=== PATIENT | female | born 1960 | race Caucasian/White ===

== ENCOUNTER 2022-01-23 23:27 | Inpatient (IN) ==
[2022-01-23] MEDS ORDERED: NS 1,000 ML IV 1,000 ML ONE (23:59)
[2022-01-23] MEDS ORDERED: ZOFRAN INJ 4 MG VIAL ONE (23:59)
[2022-01-24] MEDS ORDERED: ZOFRAN INJ 4 MG VIAL IVP ONE (00:08)
[2022-01-24] MEDS ORDERED: NS 100 ML IV 100 ML IV ONE (00:08)
[2022-01-24 00:09] LABS: BILIRUBIN,URINE 1+ (NEGATIVE); BLOOD/HEMOGLOBIN,URINE 1+ (NEGATIVE); GLUCOSE, URINE NEGATIVE (NEGATIVE); KETONES,URINE NEGATIVE (NEGATIVE); LEUKOCYTE ESTERASE ,URINE 1+ (NEGATIVE); NITRITES,URINE NEGATIVE (NEGATIVE); PROTEIN,URINE 1+ (NEGATIVE); UROBILINOGEN,URINE 1+ (NORMAL)
[2022-01-24] MEDS ORDERED: MORPHINE SULFATE INJ 2 MG INJ IVP ONE (00:18)
[2022-01-24 00:19] LABS: APPEARANCE,URINE CLEAR (CLEAR); COLOR,URINE YELLOW (YELLOW); RBC,URINE 0-2 /HPF (0-3)
[2022-01-24 00:20] LABS: BACTERIA,URINE TRACE /HPF (NEGATIVE); CALCIUM OXALATE CRYSTALS,UR NUMEROUS /HPF (NEGATIVE); SQUAMOUS EPITHELIAL CELL,UR MODERATE /HPF (NEGATIVE)
[2022-01-24] MEDS ORDERED: MORPHINE SULFATE INJ 2 MG INJ ONE (00:21)
[2022-01-24] MEDS ORDERED: NS 1,000 ML IV 1,000 ML IV ONE (00:21)
--- NOTE | 2022-01-24 00:26 | ED.ABDFE ---
HPI Time Seen Time Seen by Provider: 01/24/22 00:08 PCP Primary Care Physician: kerri finch HPI Comment HPI Comment: A 61 y/o female presenting with c/o nausea, voming and lower abdominal pain since about 6 hrs. ago. She denies recent travel or having consumed poorly prepared food items. Complaint Chief Complaint:: pt stated every since about 193 she has been having stomach pain that radiates more to the left side. she has also been vomiting. Self Treatment fo Chief Complaint: 1999- motrin COVID-19 Coronavirus risk:travel/contact w/high risk person: No Has patient experienced Coronavirus symptoms: No Source History Provided: Patient Mode of arrival Mode of Arrival: Ambulatory Timing Onset of Chief Complaint: 01/23/22 Duration Since Onset: Intermittent How lon Duration: Hours Location Location: Suprapubic Severity Severity: Moderate and Severe Modifying factors Worsening Factors: Nothing Improving Factors: Nothing Associated signs and symptoms Associated Signs and Symptoms: Nausea and Vomiting PMH PMH Past Medical History: No Past Surgical History: Yes Surgical History: Hysterectomy Family History History of Family Medical Conditions: No Social History Alcohol Use: None Do you use any recreational Drugs:: No Lives With: Spouse Lives Where: Home Travel Risk Coronavirus risk:travel/contact w/high risk person: No Has patient experienced Coronavirus symptoms: No Infectious screening In the last 2 months have you had wt loss of >10#?: NO Have you had fever, night sweats or hemotysis?: No Have you traveled outside the country in the last 6 months?: No Isolation: Standard ROS Review of Systems Constitutional: No Symptoms Reported Eyes: No Symptoms Reported ENTM: No Symptoms Reported Respiratoy: No Symptoms Reported Cardiovascular: No Symptoms Reported Gastrointestinal/Abdominal: See HPI, Abdominal Pain, Nausea and Vomiting Genitourinary: No Symptoms Reported Neurological: No Symptoms Reported Musculoskeletal: No Symptoms Reported Integumentary: No Symptoms Reported Hematologic/Lymphatic: No Symptoms Reported Endocrine: No Symptoms Reported Psychiatric: No Symptoms Reported PE Vital Signs Vitals: Temperature 98.2 F Pulse Rate 71 Respiratory Rate 20 Blood Pressure 153/70 O2 Sat by Pulse Oximetry 97 General Limitations: No Limitations General Appearance: Alert and In No Apparent Distress Head Head Exam: Normal Inspection, Atraumatic and Normocephalic Eyes Eye exam: Normal Appearance and EOMI ENT ENT Exam: Normal Exam, Normal Oropharynx, Normal External Ear Exam and Mucous Membranes Moist Neck Neck Exam: Normal Inspection, Full ROM and Trachea Midline Chest Chest Inspection: Normal Inspection and Symmetric Chest Wall Rise Respiratory Respiratory Exam: Normal Lung Sounds Bilat Cardiovascular Cardiovascular Exam: Regular Rate, Normal Rhythm, Normal Heart Sounds, +S1 and +S2 Abdominal Exam Abdominal Exam: Normal Inspection, Normal Bowel Sounds and Soft Rectal Rectal Exam: Deferred Back Back Exam: Normal Inspection and Full ROM Extremeties Extremities Exam: Normal Inspection and Full ROM External Exam: Female: Deferred Neurologic Neurological Exam: Alert and Oriented X3 Psychiatric Psychiatric Exam: Normal Affect and Normal Mood Skin Skin Exam: Intact COURSE Treatment Treatment: She had IVF, labs and abdiminal CT Scan. She received antiemetics and analgesics. I did discuss her diagnostic studies with her. Pt's. diagnostics were reviewed with on-call surgeon (Dr. ESPOSITO), who agrees to admit the pt. with repeat studies in the morning. Reevaluation 1st: Improved Education/Counseling Education/Counseling: Patient, Family, Education and Counseling Educated On: Treatment, Diagnosis, Prognosis and Needs for Follow Up ROR Labs Reviewed Result Diagrams: 01/24/22 00:08 01/24/22 00:08 Laboratory: WBC 12.6 X10^3/uL (3.6-10.0) H 01/24/22 00:08 RBC 5.19 X10^6/uL (3.5-5.4) 01/24/22 00:08 Hgb 15.4 g/dL (12.0-16.0) 01/24/22 00:08 Hct 45.3 % (36.0-47.0) 01/24/22 00:08 MCV 87.4 fL (80.0-100.0) 01/24/22 00:08 MCH 29.7 pg (27.0-34.0) 01/24/22 00:08 MCHC 34.0 g/dL (33.0-35.0) 01/24/22 00:08 RDW 14.1 % (11.6-16.5) 01/24/22 00:08 Plt Count 215 X10^3/uL (150.0-450.0) 01/24/22 00:08 MPV 9.5 fL (7.4-11.0) 01/24/22 00:08 Neut % (Auto) 74.9 % (42.0-75.0) 01/24/22 00:08 Lymph % (Auto) 16.3 % (21.0-51.0) L 01/24/22 00:08 [place] % (Auto) 7.2 % (0.0-13.0) 01/24/22 00:08 Eos % (Auto) 0.8 % (0.9-2.9) L 01/24/22 00:08 Baso % (Auto) 0.8 % (0.2-1.0) 01/24/22 00:08 Neut # (Auto) 9.4 x10^3/uL (2.2-4.8) H 01/24/22 00:08 Lymph # (Auto) 2.0 X10^3/uL (1.3-2.9) 01/24/22 00:08 [place] # (Auto) 0.9 x10^3/uL (0.3-0.8) H 01/24/22 00:08 Eos # (Auto) 0.1 x10^3/uL (0.0-0.2) 01/24/22 00:08 Baso # (Auto) 0.1 X10^3/uL (0.0-0.1) 01/24/22 00:08 Absolute Nucleated RBC 0.0 /100WBC 01/24/22 00:08 Sodium 138 mmol/L (136-145) 01/24/22 00:08 Corrected Sodium 139 mmol/L (136-145) 01/24/22 00:08 Potassium 4.0 mmol/L (3.5-5.1) 01/24/22 00:08 Chloride 100 mmol/L (98-107) 01/24/22 00:08 Carbon Dioxide 27.9 mmol/L (21-32) 01/24/22 00:08 BUN 17 mg/dL (7-18) 01/24/22 00:08 Creatinine 0.83 mg/dL (0.55-1.02) 01/24/22 00:08 Est GFR (MDRD) Af Amer > 60 (>60) 01/24/22 00:08 Est GFR (MDRD) Non-Af > 60 (>60) 01/24/22 00:08 Glucose 129 mg/dL (65-99) H 01/24/22 00:08 Calcium 9.6 mg/dL (8.5-10.1) 01/24/22 00:08 Corrected Calcium TNP 01/24/22 00:08 Total Bilirubin 0.30 mg/dL (0.2-1.0) 01/24/22 00:08 AST 15 Units/L (15-37) 01/24/22 00:08 ALT 23 Units/L (12-78) 01/24/22 00:08 Alkaline Phosphatase 102 Units/L (46-116) 01/24/22 00:08 Total Protein 8.1 g/dL (6.4-8.2) 01/24/22 00:08 Albumin 4.2 g/dL (3.4-5.0) 01/24/22 00:08 Globulin 3.9 g/dL (2.5-4.5) 01/24/22 00:08 Albumin/Globulin Ratio 1.1 Ratio (1.1-2.1) 01/24/22 00:08 Specimen Type Clean catch urine 01/23/22 23:51 Urine Color Yellow (YELLOW) 01/23/22 23:51 Urine Appearance Clear (CLEAR) 01/23/22 23:51 Urine pH 5.0 (5.0 - 8.0) 01/23/22 23:51 Ur Specific [place] 1.030 (1.000-1.030) 01/23/22 23:51 Urine Protein 1+ (NEGATIVE) 01/23/22 23:51 Urine Glucose (UA) Negative (NEGATIVE) 01/23/22 23:51 Urine Ketones Negative (NEGATIVE) 01/23/22 23:51 Urine Blood 1+ (NEGATIVE) 01/23/22 23:51 Urine Nitrite Negative (NEGATIVE) 01/23/22 23:51 Urine Bilirubin 1+ (NEGATIVE) 01/23/22 23:51 Urine Urobilinogen 1+ (NORMAL) 01/23/22 23:51 Ur Leukocyte Esterase 1+ (NEGATIVE) 01/23/22 23:51 Urine RBC 0-2 /HPF (0-3) 01/23/22 23:51 Urine WBC 0-2 /HPF (0-5) 01/23/22 23:51 Ur Squamous Epith Cells Moderate /HPF (NEGATIVE) 01/23/22 23:51 Calcium Oxalate Crystal Numerous /HPF (NEGATIVE) 01/23/22 23:51 Urine Bacteria Trace /HPF (NEGATIVE) 01/23/22 23:51 Ur Culture Indicated? No/not indicated 01/23/22 23:51 Opioid Opioid Risk Tool Age (Darryl box if 16-45): No History of Preadolescent Sexual Abuse: No Total: 0 Total Score Risk Category: Low Risk Copyright: Bueno predicting aberrant behaviors Discharge Plan Diagnosis Discharge Problem: Volvulus Discharge Plan Patient Disposition: ADMITTED INPATIENT Condition: Stable Prescriptions: No Action atorvastatin 10 mg tablet 1 tab PO QPM omeprazole 40 mg capsule,delayed release(DR/EC) 1 cap PO QDAY temazepam 15 mg capsule 1 cap PO QPM PRN estradiol 2 mg tablet 1 tab PO QDAY folic acid 1 mg tablet 1 tab PO QDAY albuterol sulfate 90 mcg/actuation HFA aerosol inhaler 2 puff INHALATION Q4H PRN budesonide-formoterol [Symbicort] 160-4.5 mcg/actuation HFA aerosol inhaler 2 puff INHALATION BID thyroid (pork) [[place] Thyroid] 90 mg tablet 1 tab PO QAM Health Concerns: Post Hospitalization: new medications and changes needed to prevent readmission or further decline. Pt educated and given instructions on all concerns. Plan of Treatment: Continue with present treatment and follow up plan. Pt is to keep follow up appointment as instructed and take medications as ordered. Orders to Discharge Patient Discharge Orders: Transfer (Routine); Ordered 01/24/22 Ordered By: PARMINDER TOMPKINS Follow ups/Referrals Follow ups/Referrals: RODRICK FINCH [Primary Care Provider] - 3 days ADDITIONAL NOTES Additional Notes Additional Notes: Name: Omar SILVERIO#: [id number]: [id number]: 1960ex: FLocation: EROrder Number(s): [id number](s):ABDOMEN/PELVIS W/O CON Ordering Physician: PARMINDER TOMPKINS Primary Care: Rodrick Finch Service Date: 01/24/22 Service Time: 23 PROCEDURE: CT Abdomen and Pelvis without Contrast . HISTORY: Abdomen pain radiating to the left with nausea and vomiting. TECHNIQUE: Axial images were performed through the abdomen and pelvis without the administration of IV contrast with multiplanar reformations . Oral contrast was not administered . Dose reduction techniques including Automated Exposure Control (AEC) and adjustment of mA and kV were utilized . COMPARISON: None . TECHNICAL QUALITY: Satisfactory . FINDINGS: The linear scar versus discoid atelectasis right base. Mildly elevated left hemidiaphragm. Subcentimeter right hepatic cyst laterally. Spleen, adrenals, and pancreas show no significant abnormality. Kidneys show no stones or obstruction. Normal biliary tract. No ascites or pneumoperitoneum. Mild atherosclerosis aorta. No lymphadenopathy. Prominent mucosa involving duodenum in jejunal bowel loops consistent with enteritis with mild perienteric stranding. Associated mild ileus involving the loops. There is a nonobstructing mid gut volvulus with jejunal bowel loops in the mid and right abdomen. No definite bowel obstruction. Normal appendix. Pelvis shows no masses or free fluid with previous hysterectomy. Normal urinary bladder. No acute bony abnormality. IMPRESSION: 1. Enteritis involving duodenum and jejunum with suspected localized ileus. 2. Nonobstructing mid gut volvulus. Follow-up plain films may be helpful to rule out early obstruction with dilated loops suspected to be related to ileus. 3. No other significant abnormality identified. Electronically signed by: Leroy Singh (Jan 24, 2022 01:01:13) Report Electronically signed: 01/24/22 0103 CC: Parminder Tompkins
[2022-01-24 00:29] LABS: HEMOGLOBIN 15.4 g/dL (12.0-16.0); RED CELL DISTRIBUTION WIDTH 14.1 % (11.6-16.5)
[2022-01-24 00:32] LABS: BASOPHILS # (AUTO) 0.1 X10^3/uL (0.0-0.1); BASOPHILS % (AUTO) 0.8 % (0.2-1.0); EOSINOPHILS # (AUTO) 0.1 x10^3/uL (0.0-0.2); EOSINOPHILS % (AUTO) 0.8 % (0.9-2.9); HEMATOCRIT 45.3 % (36.0-47.0); LYMPHOCYTES % (AUTO) 16.3 % (21.0-51.0); MEAN CORPUSCULAR HEMOGLOBIN 29.7 pg (27.0-34.0); MEAN CORPUSCULAR VOLUME 87.4 fL (80.0-100.0); MEAN PLATELET VOLUME 9.5 fL (7.4-11.0); MONOCYTES # (AUTO) 0.9 x10^3/uL (0.3-0.8); MONOCYTES % (AUTO) 7.2 % (0.0-13.0); NEUTROPHILS # (AUTO) 9.4 x10^3/uL (2.2-4.8); NEUTROPHILS % (AUTO) 74.9 % (42.0-75.0); RED BLOOD COUNT 5.19 X10^6/uL (3.5-5.4); WHITE BLOOD COUNT 12.6 X10^3/uL (3.6-10.0)
[2022-01-24 00:39] LABS: ALANINE AMINOTRANSFERASE 23 Units/L (12-78); ALBUMIN 4.2 g/dL (3.4-5.0); ALKALINE PHOSPHATASE 102 Units/L (46-116); ASPARTATE AMINO TRANSFERASE 15 Units/L (15-37); BLOOD UREA NITROGEN 17 mg/dL (7-18); CALCIUM 9.6 mg/dL (8.5-10.1); CARBON DIOXIDE 27.9 mmol/L (21-32); CHLORIDE 100 mmol/L (98-107); COR NA(FOR HYPERGLY) 139 mmol/L (136-145); CREATININE 0.83 mg/dL (0.55-1.02); SODIUM 138 mmol/L (136-145); TOTAL PROTEIN 8.1 g/dL (6.4-8.2); eGFR NON BLACK RACES > 60 (>60)
--- NOTE | 2022-01-24 01:03 | CT ---
PROCEDURE: CT Abdomen and Pelvis without Contrast .HISTORY: Abdomen pain radiating to the left with nausea and vomiting.TECHNIQUE: Axial images were performed through the abdomen and pelvis without the administration of IV contrast with multiplanar reformations . Oral contrast was not administered . Dose reduction techniques including Automated Exposure Control (AEC) and adjustment of mA and kV were utilized .COMPARISON: None .TECHNICAL QUALITY: Satisfactory .FINDINGS:The linear scar versus discoid atelectasis right base. Mildly elevated left hemidiaphragm.Subcentimeter right hepatic cyst laterally. Spleen, adrenals, and pancreas show no significant abnormality.Kidneys show no stones or obstruction.Normal biliary tract.No ascites or pneumoperitoneum.Mild atherosclerosis aorta.No lymphadenopathy.Prominent mucosa involving duodenum in jejunal bowel loops consistent with enteritis with mild perienteric stranding. Associated mild ileus involving the loops. There is a nonobstructing mid gut volvulus with jejunal bowel loops in the mid and right abdomen. No definite bowel obstruction. Normal appendix.Pelvis shows no masses or free fluid with previous hysterectomy. Normal urinary bladder.No acute bony abnormality.IMPRESSION:1. Enteritis involving duodenum and jejunum with suspected localized ileus.2. Nonobstructing mid gut volvulus. Follow-up plain films may be helpful to rule out early obstruction with dilated loops suspected to be related to ileus.3. No other significant abnormality identified.Electronically signed by: Leroy Singh (Jan 24, 2022 01:01:13)
[2022-01-24] MEDS ORDERED: NS 1,000 ML IV 1,000 ML ONE (01:27)
[2022-01-24] MEDS ORDERED: MORPHINE SULFATE INJ 2 MG INJ IVP PRN (01:39)
[2022-01-24] MEDS ORDERED: NS 1,000 ML IV 1,000 ML IV SCH (02:00)
[2022-01-24] MEDS ORDERED: COMPAZINE INJ ONE (02:53)
[2022-01-24] MEDS ORDERED: RESTORIL CAP 15 MG PO PRN (02:56)
[2022-01-24] MEDS: NS 1,000 ML IV 1,000 ML IV SCH ×4 (03:31→18:05)
--- NOTE | 2022-01-24 05:47 | RAD ---
PROCEDURE: Acute Abdomen Series .HISTORY: Abdomen pain and volvulus.TECHNIQUE: AP supine and upright abdomen with AP chest x-ray views .COMPARISON: Correlated with CT abdomen pelvis 01/23/2022.TECHNICAL QUALITY: Satisfactory .FINDINGS:Chest x-ray shows clear lungs and normal size heart.No pneumoperitoneum.Small bowel gas mid left abdomen be related ileus or early obstruction. Gas and feces in the colon without distention.No organomegaly.No abnormal calcifications.No bony abnormality.IMPRESSION:1. Mild ileus versus early obstruction.2. No active cardiopulmonary disease.Electronically signed by: Leroy Singh (Jan 24, 2022 05:46:02)
[2022-01-24 06:19] LABS: BLOOD UREA NITROGEN 14 mg/dL (7-18); CALCIUM 8.6 mg/dL (8.5-10.1); CARBON DIOXIDE 26.5 mmol/L (21-32); CHLORIDE 105 mmol/L (98-107); COR NA(FOR HYPERGLY) 138 mmol/L (136-145); CREATININE 0.54 mg/dL (0.55-1.02); SODIUM 138 mmol/L (136-145); eGFR NON BLACK RACES > 60 (>60)
[2022-01-24 06:21] LABS: BASOPHILS % (AUTO) 0.5 % (0.2-1.0); EOSINOPHILS % (AUTO) 0.2 % (0.9-2.9); HEMATOCRIT 39.5 % (36.0-47.0); HEMOGLOBIN 13.6 g/dL (12.0-16.0); LYMPHOCYTES # (AUTO) 1.1 X10^3/uL (1.3-2.9); LYMPHOCYTES % (AUTO) 12.7 % (21.0-51.0); MEAN CORPUSCULAR HEMOGLOBIN 29.9 pg (27.0-34.0); MEAN CORPUSCULAR HGB CONC 34.3 g/dL (33.0-35.0); MEAN CORPUSCULAR VOLUME 87.1 fL (80.0-100.0); MEAN PLATELET VOLUME 9.6 fL (7.4-11.0); MONOCYTES # (AUTO) 0.5 x10^3/uL (0.3-0.8); MONOCYTES % (AUTO) 5.1 % (0.0-13.0); NEUTROPHILS # (AUTO) 7.2 x10^3/uL (2.2-4.8); NEUTROPHILS % (AUTO) 81.5 % (42.0-75.0); RED BLOOD COUNT 4.53 X10^6/uL (3.5-5.4); RED CELL DISTRIBUTION WIDTH 13.8 % (11.6-16.5); WHITE BLOOD COUNT 8.9 X10^3/uL (3.6-10.0)
[2022-01-24] MEDS ORDERED: DILAUDID INJ IVP PRN (06:46)
[2022-01-24] MEDS ORDERED: DILAUDID INJ ONE (06:48)
[2022-01-24 06:53] LABS: ALANINE AMINOTRANSFERASE 19 Units/L (12-78); ALBUMIN 3.3 g/dL (3.4-5.0); ALKALINE PHOSPHATASE 83 Units/L (46-116); ASPARTATE AMINO TRANSFERASE 13 Units/L (15-37); COR CA(FOR HYPOALB) 9.2 mg/dL (8.5-10.1); TOTAL PROTEIN 6.5 g/dL (6.4-8.2)
[2022-01-24] MEDS: ESTRACE PO SCH (08:32)
[2022-01-24] MEDS ORDERED: PROVENTIL NEB TX 0.083% 2.5MG/ 3ML ONE (08:33)
[2022-01-24] MEDS ORDERED: PULMICORT NEB TX 0.5 MG NEB ONE ×2 (08:33→20:00)
[2022-01-24] MEDS: FOLIC ACID TAB 1 MG PO SCH (08:34)
[2022-01-24] MEDS: PULMICORT NEB TX 0.5 MG NEB SCH ×2 (08:35→21:03)
[2022-01-24] MEDS: PROVENTIL NEB TX 0.083% 2.5MG/ 3ML NEB PRN ×4 (08:35→21:03)
[2022-01-24] MEDS ORDERED: SYMBICORT INH 160/4.5 mcg IN SCH (09:00)
[2022-01-24] MEDS ORDERED: PriLOSEC PO SCH (09:00)
[2022-01-24] MEDS ORDERED: PATIENT'S HOME MEDICATION (Budesonide-Formoterol [Symbicort] 160-4.5 mcg/actuation HFA aer IN SCH (09:00)
--- NOTE | 2022-01-24 09:58 | DR.PROGNOT ---
Hospital Progress Notes - Progress Note for Day of: Progress Note Date: 01/24/22 - Chief Complaint Chief Complaint: Lt side abdominal pain with severe cramps , nausea , dry heaves .. remote h/o hysterectomy . KUB with mild ileus . normal CBC with 815 segs . consentrated urine . - Past Medical Family Social History Past Med/Fam/Surg Hx: No changes since H&P Allergies: Allergies cephalexin [From Keflex] Allergy (Verified 01/23/22 23:43) - Review Of Systems ROS: No change since H&P - Vital Signs Vital Signs: Temperature 98.6 F Pulse Rate [Left Brachial] 68 Pulse Rate 71 Respiratory Rate 24 Blood Pressure [Right Arm] 142/61 Blood Pressure [Left Arm] 124/60 Blood Pressure 153/70 O2 Sat by Pulse Oximetry 94 - Physical Exam Oriented: Normal Eyes: Normal Ear: Normal Nose: Normal Throat: Normal Cardiovascular: Normal : Normal GI:Auscultation: Decreased GI:Palpation: Normal GI: Tenderness: LUQ, LLQ (soft abdomen with moderate Lt side tenderness ) Speech Pattern: Clear - Laboratory and Diagnostics Result Diagrams: 01/24/22 04:57 01/24/22 04:57 Labs: Laboratory WBC 8.9 X10^3/uL (3.6-10.0) 01/24/22 04:57 RBC 4.53 X10^6/uL (3.5-5.4) 01/24/22 04:57 Hgb 13.6 g/dL (12.0-16.0) 01/24/22 04:57 Hct 39.5 % (36.0-47.0) 01/24/22 04:57 MCV 87.1 fL (80.0-100.0) 01/24/22 04:57 MCH 29.9 pg (27.0-34.0) 01/24/22 04:57 MCHC 34.3 g/dL (33.0-35.0) 01/24/22 04:57 RDW 13.8 % (11.6-16.5) 01/24/22 04:57 Plt Count 167 X10^3/uL (150.0-450.0) 01/24/22 04:57 MPV 9.6 fL (7.4-11.0) 01/24/22 04:57 Neut % (Auto) 81.5 % (42.0-75.0) H 01/24/22 04:57 Lymph % (Auto) 12.7 % (21.0-51.0) L 01/24/22 04:57 [place] % (Auto) 5.1 % (0.0-13.0) 01/24/22 04:57 Eos % (Auto) 0.2 % (0.9-2.9) L 01/24/22 04:57 Baso % (Auto) 0.5 % (0.2-1.0) 01/24/22 04:57 Neut # (Auto) 7.2 x10^3/uL (2.2-4.8) H 01/24/22 04:57 Lymph # (Auto) 1.1 X10^3/uL (1.3-2.9) L 01/24/22 04:57 [place] # (Auto) 0.5 x10^3/uL (0.3-0.8) 01/24/22 04:57 Eos # (Auto) 0.0 x10^3/uL (0.0-0.2) 01/24/22 04:57 Baso # (Auto) 0.0 X10^3/uL (0.0-0.1) 01/24/22 04:57 Absolute Nucleated RBC 0.1 /100WBC 01/24/22 04:57 Sodium 138 mmol/L (136-145) 01/24/22 04:57 Corrected Sodium 138 mmol/L (136-145) 01/24/22 04:57 Potassium 3.9 mmol/L (3.5-5.1) 01/24/22 04:57 Chloride 105 mmol/L (98-107) 01/24/22 04:57 Carbon Dioxide 26.5 mmol/L (21-32) 01/24/22 04:57 BUN 14 mg/dL (7-18) 01/24/22 04:57 Creatinine 0.54 mg/dL (0.55-1.02) L 01/24/22 04:57 Est GFR (MDRD) Af Amer > 60 (>60) 01/24/22 04:57 Est GFR (MDRD) Non-Af > 60 (>60) 01/24/22 04:57 Glucose 114 mg/dL (65-99) H 01/24/22 04:57 Calcium 8.6 mg/dL (8.5-10.1) 01/24/22 04:57 Corrected Calcium 9.2 mg/dL (8.5-10.1) 01/24/22 04:57 Total Bilirubin 0.20 mg/dL (0.2-1.0) 01/24/22 04:57 AST 13 Units/L (15-37) L 01/24/22 04:57 ALT 19 Units/L (12-78) 01/24/22 04:57 Alkaline Phosphatase 83 Units/L (46-116) 01/24/22 04:57 Total Protein 6.5 g/dL (6.4-8.2) 01/24/22 04:57 Albumin 3.3 g/dL (3.4-5.0) L 01/24/22 04:57 Globulin 3.2 g/dL (2.5-4.5) 01/24/22 04:57 Albumin/Globulin Ratio 1.0 Ratio (1.1-2.1) L 01/24/22 04:57 Specimen Type Clean catch urine 01/23/22 23:51 Urine Color Yellow (YELLOW) 01/23/22 23:51 Urine Appearance Clear (CLEAR) 01/23/22 23:51 Urine pH 5.0 (5.0 - 8.0) 01/23/22 23:51 Ur Specific [place] 1.030 (1.000-1.030) 01/23/22 23:51 Urine Protein 1+ (NEGATIVE) 01/23/22 23:51 Urine Glucose (UA) Negative (NEGATIVE) 01/23/22 23:51 Urine Ketones Negative (NEGATIVE) 01/23/22 23:51 Urine Blood 1+ (NEGATIVE) 01/23/22 23:51 Urine Nitrite Negative (NEGATIVE) 01/23/22 23:51 Urine Bilirubin 1+ (NEGATIVE) 01/23/22 23:51 Urine Urobilinogen 1+ (NORMAL) 01/23/22 23:51 Ur Leukocyte Esterase 1+ (NEGATIVE) 01/23/22 23:51 Urine RBC 0-2 /HPF (0-3) 01/23/22 23:51 Urine WBC 0-2 /HPF (0-5) 01/23/22 23:51 Ur Squamous Epith Cells Moderate /HPF (NEGATIVE) 01/23/22 23:51 Calcium Oxalate Crystal Numerous /HPF (NEGATIVE) 01/23/22 23:51 Urine Bacteria Trace /HPF (NEGATIVE) 01/23/22 23:51 Ur Culture Indicated? No/not indicated 01/23/22 23:51 SARS-CoV-2 (PCR) Negative (NEGATIVE) 01/24/22 01:53 - Assessment and Plan 2: acute abdominal pain possible partial SBO . abdominal adhesions .. hypothyroidism . anxiety . asthma . GERD .. to observe for now .. keep NPO , INF, IV protonix and pain control .. - Problem Patient Problems: Patient Problems Volvulus (Acute) K56.2
[2022-01-24] MEDS: DILAUDID INJ IVP PRN ×4 (10:40→21:10)
[2022-01-24] MEDS: PROTONIX INJ 40 MG VIAL IVP SCH ×2 (10:40→21:11)
--- NOTE | 2022-01-24 15:30 | DR.CONSULT ---
CONSULT Consultation for Day of: Date: 01/24/22 Chief Complaint Chief Complaint: Consultation for medical management of chronic medical problems Allergies Allergies Allergy/AdvReac Type Severity Reaction Status Date / Time cephalexin [From Keflex] Allergy Verified 01/23/22 23:43 History of Present Illness History of Present Illness: This is a pleasant 61-year-old white female who presented to the emergency department last night with nausea vomiting and abdominal cramping radiating to the left side of her abdomen. CT of the abdomen was done which showed some enteritis in the duodenum and jejunum. Also possible volvulus indicating a possible ileus versus small bowel obstruction but more likely an ileus. This morning the patient is sitting on the side of the bed and seems to be more comfortable though she comes in. She is feeling better today and reports to me that she does have a history of hypothyroidism, COPD, hyperlipidemia, insomnia and acid reflux. Past Medical History Past Medical History: COPD, Dyslipidemia, GERD and Hypothyroidism Past Surgical History Surgical History: Hysterectomy Family History Family Medical History: Cancer, NM and Sudden Cardiac Social History Does patient currently use any type of tobacco product: Yes Have you used tobacco products in the last 12 months: Yes Type of Tobacco Use: Cigarettes Alcohol Use: None Drug Use: None Medications Home Medications: cephalexin [From Keflex] Allergy (Verified 01/23/22 23:43) CONTINUE taking the following medications albuterol sulfate 90 mcg/actuation aerosol inhaler 2 puff inhalation Q4H PRN 01/24/22 [History] atorvastatin 10 mg tablet 1 tab PO QPM cholesterol 01/24/22 [History] budesonide-formoterol HFA 160 mcg-4.5 mcg/actuation aerosol inhaler (Symbicort) 2 puff inhalation BID 01/24/22 [History] estradiol 2 mg tablet 1 tab PO QDAY 01/24/22 [History] folic acid 1 mg tablet 1 tab PO QDAY 01/24/22 [History] omeprazole 40 mg capsule,delayed release 1 cap PO QDAY 01/24/22 [History] temazepam 15 mg capsule 1 cap PO QPM PRN 01/24/22 [History] thyroid (pork) 90 mg tablet ([place] Thyroid) 1 tab PO QAM 01/24/22 [History] Review of Systems Constitutional: No Symptoms Reported ENT: No Symptoms Reported Respiratory: No Symptoms Reported Cardiovascular: No Symptoms Reported Gastrointestinal: Nausea, Vomiting and Abdominal Pain Genitourinary: No Symptoms Reported Musculoskeletal: No Symptoms Reported Skin: No Symptoms Reported Neurological: No Symptoms Reported Physical Exam Vital Signs: Temperature 98.3 F Pulse Rate [Left Brachial] 84 Pulse Rate 71 Respiratory Rate 20 Blood Pressure [Right Arm] 129/59 Blood Pressure [Left Arm] 124/60 Blood Pressure 153/70 O2 Sat by Pulse Oximetry 100 Oriented: Normal, Time, Person and Place Eyes: Normal Ear: Normal Nose: Normal Throat: Normal Respiratory: Clear Throughout Cardiovascular: Normal : Normal Auscultation: Bowel Sounds: Decreased Palpation: Other (Diffuse tenderness to abdominal palpation) Tenderness: Diffuse Skin: Normal Musculoskeletal: Normal Psychiatric: Normal Mood Description: Calm Affect: Normal Speech Pattern: Clear and Appropriate Plan (1) Volvulus: Status: Acute Plan: Treatment per general surgery. (2) COPD (chronic obstructive pulmonary disease): Status: Acute Plan: Continue as needed albuterol nebs as needed for shortness of breath. I will order her her Symbicort also that she normally takes for her COPD. (3) Hypothyroidism: Status: Acute Plan: Hold thyroid medication at this time. I will check a TSH on the patient if she has not not had one done in the last 3 months. (4) Hypercholesteremia: Status: Acute Plan: Hold p.o. atorvastatin at this time. (5) Insomnia: Status: Acute (6) Acid reflux disease: Status: Acute Plan: IV Protonix every 12 hours.
[2022-01-24] MEDS: LIPITOR TAB 10 MG PO SCH (21:11)
[2022-01-24] MEDS: ZOFRAN INJ 4 MG VIAL IVP PRN (21:12)
[2022-01-25] MEDS: DILAUDID INJ IVP PRN ×9 (00:12→21:00)
[2022-01-25] MEDS: NS 1,000 ML IV 1,000 ML IV SCH ×3 (01:15→20:48)
[2022-01-25] MEDS: ZOFRAN INJ 4 MG VIAL IVP PRN (03:29)
[2022-01-25 06:27] LABS: BASOPHILS % (AUTO) 0.3 % (0.2-1.0); EOSINOPHILS % (AUTO) 0.3 % (0.9-2.9); HEMATOCRIT 43.1 % (36.0-47.0); HEMOGLOBIN 14.5 g/dL (12.0-16.0); LYMPHOCYTES # (AUTO) 0.6 X10^3/uL (1.3-2.9); LYMPHOCYTES % (AUTO) 5.1 % (21.0-51.0); MEAN CORPUSCULAR HEMOGLOBIN 29.6 pg (27.0-34.0); MEAN CORPUSCULAR HGB CONC 33.7 g/dL (33.0-35.0); MEAN CORPUSCULAR VOLUME 87.9 fL (80.0-100.0); MEAN PLATELET VOLUME 9.3 fL (7.4-11.0); MONOCYTES # (AUTO) 0.7 x10^3/uL (0.3-0.8); MONOCYTES % (AUTO) 6.5 % (0.0-13.0); NEUTROPHILS # (AUTO) 9.9 x10^3/uL (2.2-4.8); NEUTROPHILS % (AUTO) 87.8 % (42.0-75.0); RED BLOOD COUNT 4.91 X10^6/uL (3.5-5.4); RED CELL DISTRIBUTION WIDTH 13.6 % (11.6-16.5); WHITE BLOOD COUNT 11.3 X10^3/uL (3.6-10.0)
[2022-01-25 06:52] LABS: ALANINE AMINOTRANSFERASE 14 Units/L (12-78); ALKALINE PHOSPHATASE 82 Units/L (46-116); ASPARTATE AMINO TRANSFERASE 14 Units/L (15-37); BLOOD UREA NITROGEN 10 mg/dL (7-18); CALCIUM 8.7 mg/dL (8.5-10.1); CARBON DIOXIDE 28.6 mmol/L (21-32); CHLORIDE 103 mmol/L (98-107); COR CA(FOR HYPOALB) 9.5 mg/dL (8.5-10.1); COR NA(FOR HYPERGLY) 140 mmol/L (136-145); CREATININE 0.61 mg/dL (0.55-1.02); MAGNESIUM 1.5 mg/dL (1.7-2.9); SODIUM 139 mmol/L (136-145); TOTAL PROTEIN 6.3 g/dL (6.4-8.2); eGFR NON BLACK RACES > 60 (>60)
[2022-01-25] MEDS: ESTRACE PO SCH (09:38)
[2022-01-25] MEDS: FOLIC ACID TAB 1 MG PO SCH (09:39)
[2022-01-25] MEDS: PROTONIX INJ 40 MG VIAL IVP SCH ×2 (09:40→21:01)
[2022-01-25] MEDS: PULMICORT NEB TX 0.5 MG NEB SCH ×2 (09:45→20:51)
[2022-01-25] MEDS: PROVENTIL NEB TX 0.083% 2.5MG/ 3ML NEB PRN ×3 (09:45→20:51)
--- NOTE | 2022-01-25 11:05 | RAD ---
HISTORYAbdominal painSTUDYKUBCOMPARISONCT abdomen pelvis 01/24/2022, acute abdominal series 01/24/2022FINDINGSThere is increasing small bowel particularly in the left mid abdomen and left upper quadrant when compared with the prior examinations. Gas is still present distally within the colon. Findings are suspicious for developing partial small bowel obstruction. No abnormal masses or abnormal calcifications are identified.IMPRESSIONIncreasing small bowel dilatation when compared to the prior examinations but with gas distally within the colon. Findings are suspicious for developing partial small bowel obstructionElectronically signed by: NORBERTO LAL (Jan 25, 2022 11:03:41)
[2022-01-25 16:14] VITALS: BMI 23.8
[2022-01-25] MEDS ORDERED: MAGNESIUM SULFATE 1 GRAM/100 mL PREMIX 1 G/100 ML BAG IV ONE (16:46)
[2022-01-25] MEDS: MAGNESIUM SULFATE 1 GRAM/100 mL PREMIX 1 G/100 ML BAG IV PRN (16:52)
--- NOTE | 2022-01-25 17:22 | RAD ---
HISTORYPRE OP ABD SX, SBO Relevant Clinical InformationSTUDYCHEST, 1 VIEWCOMPARISONTwo-view chest October 04, 2021FINDINGSThe trachea is midline. The cardiac silhouette is unremarkable. The lungs are clear without focal infiltrate or effusion. The bony thorax is unremarkable. No free air seen under the diaphragm.IMPRESSIONNo acute cardiopulmonary findings no change from the prior chest film October 04, 2021.Electronically signed by: BRYANT THORNTON (Jan 25, 2022 17:20:44)
[2022-01-25] MEDS ORDERED: ZEMURON 100 MG VIAL ONE (17:33)
[2022-01-25] MEDS ORDERED: TORADOL 30 MG VIAL ONE (17:33)
[2022-01-25] MEDS ORDERED: ZOFRAN INJ 4 MG VIAL ONE (17:33)
[2022-01-25] MEDS ORDERED: BRIDION ONE (17:34)
[2022-01-25] MEDS ORDERED: DIPRIVAN VIAL 20 ML ONE (17:34)
[2022-01-25] MEDS ORDERED: OFIRMEV IV 1000 MG VIAL 1,000 MG/100 ML VIAL IV ONE (17:34)
[2022-01-25] MEDS ORDERED: FENTANYL VIAL INJ 100 mcg ONE (17:35)
[2022-01-25] MEDS ORDERED: VERSED ONE (17:36)
[2022-01-25] MEDS ORDERED: SUPRANE ONE (17:38)
[2022-01-25] MEDS ORDERED: ULTANE GAS IN ONE ×2 (17:38→18:11)
[2022-01-25] MEDS ORDERED: ANCEF VIAL 1 GRAM ONE (17:45)
[2022-01-25] MEDS ORDERED: NS 1,000 ML IV 1,000 ML ONE (17:45)
[2022-01-25] MEDS ORDERED: NS 100 ML IV 0 ML ONE (17:46)
[2022-01-25] MEDS ORDERED: LEVAQUIN PREMIX IV 500 MG 500 MG/100 ML BAG IV ONE (17:53)
[2022-01-25] MEDS ORDERED: CLEOCIN 600 MG IV PREMIX 600 MG/50 ML BAG IV ONE (17:56)
[2022-01-25] MEDS ORDERED: LR 1,000 ML IV 1,000 ML IV ONE (18:03)
[2022-01-25] MEDS ORDERED: NEO-SYNEPHRINE INJ ONE (18:21)
--- NOTE | 2022-01-25 18:26 | PCM.PROG ---
Progress Note Progress Note for Day of Date of Exam: 01/25/22 Subjective Subjective: WAS ADMITTED TO THE HOSPITAL ON 01/24/22 FOR TREATMENT OF ILEUS VS SMALL BOWEL OBSTRUCTION AND ABDOMINAL PAIN. I WAS CONSULTED FOR MEDICAL MANAGEMENT OF CHRONIC MEDICAL PROBLEMS. CHRONIC MEDICAL PROBLEMS INCLUDE COPD, DYSLIPIDEMIA, GERD, INSOMNIA, HYPOTHYROIDISM. TODAY, SHE IS ALERT AND ORIENTED, SITTING ON THE SIDE OF THE BED ON MORNING ROUNDS. SHE CONTINUES TO HAVE DIFFUSE ABDOMINAL PAIN AND NAUSEA THIS MORNING. PAIN IS DESCRIBED CRAMPING. PAIN IS WORSE TO THE LLQ. SHE ALSO COMPLAINS OF SHORTNESS OF BREATH AT TIMES. EXAMINATION REVEALED DIMINISHED LUNG SOUNDS THROUGHOUT. DECREASED BOWEL SOUNDS NOTED IN ALL QUADRANTS. HER VITALS THIS MORNING ARE: 98.5-95-20-98%-99/51. LABS WERE OBTAINED. WBC 11.3, HGB 14.5, HCT 43.1, PLT COUNT 183, SODIUM 139, POTASSIUM 4.1, CHLORIDE 103, BUN 10, CREATININE 0.61, GLUCOSE 122, CALCIUM 8.7, MAGNESIUM 1.5, TOTAL BILI 0.40, AST 14, ALT 14, ALK PHOS 82, TOTAL PROTEIN 6.3, ALBUMIN 3.0. KUB WAS REPEATED THIS MORNING AND REVEALED: Increasing small bowel dilatation when compared to the prior examinations but with gas distally within the colon. Findings are suspicious for developing partial small bowel obstruction. WE WILL CONTINUE TO HOLD HER NPO AND CONTINUE WITH CURRENT PLAN OF CARE. OTHERWISE, WE PLAN TO FOLLOW UP WITH AM LABS AND KUB AND CONTINUE TO MONITOR. TIME SPENT ON CLINICAL ASSESSMENT, REVIEWING LABS AND IMAGING, DECISION MAKING, AND DOCUMENTATION GREATER THAN 45 MINUTES. Past Medical Family Social History Past Med/Fam/Surg Hx: No changes since H&P Allergies: Allergies cephalexin [From Keflex] Allergy (Verified 01/23/22 23:43) Review of Systems ROS: No change since H&P Vital Signs and I&O's Vital Signs: Temperature 99.0 F Pulse Rate [Left Brachial] 96 Pulse Rate 93 Respiratory Rate 18 Blood Pressure [Right Arm] 137/63 Blood Pressure [Left Arm] 124/60 Blood Pressure 107/54 O2 Sat by Pulse Oximetry 94 Intake and Output: Intake & Output 01/23/22 01/24/22 01/25/22 01/26/22 11:59 11:59 11:59 11:59 Intake Total 500 / 500 1500 / 1500 0 / 0 Balance 500 / 500 1500 / 1500 0 / 0 Physical Exam Oriented: Normal, Time, Person and Place Eyes: Normal Ear: Normal Nose: Normal Throat: Normal Cardiovascular: Normal : Normal Auscultation: Bowel Sounds: Decreased Tenderness: Diffuse Skin: Normal Musculoskeletal: Normal Psychiatric: Normal Mood Description: Calm Affect: Normal Speech Pattern: Clear Laboratory and Diagnostics Result Diagrams: 01/25/22 05:56 01/25/22 05:56 Labs: Laboratory WBC 11.3 X10^3/uL (3.6-10.0) H 01/25/22 05:56 RBC 4.91 X10^6/uL (3.5-5.4) 01/25/22 05:56 Hgb 14.5 g/dL (12.0-16.0) 01/25/22 05:56 Hct 43.1 % (36.0-47.0) 01/25/22 05:56 MCV 87.9 fL (80.0-100.0) 01/25/22 05:56 MCH 29.6 pg (27.0-34.0) 01/25/22 05:56 MCHC 33.7 g/dL (33.0-35.0) 01/25/22 05:56 RDW 13.6 % (11.6-16.5) 01/25/22 05:56 Plt Count 183 X10^3/uL (150.0-450.0) 01/25/22 05:56 MPV 9.3 fL (7.4-11.0) 01/25/22 05:56 Neut % (Auto) 87.8 % (42.0-75.0) H 01/25/22 05:56 Lymph % (Auto) 5.1 % (21.0-51.0) L 01/25/22 05:56 [place] % (Auto) 6.5 % (0.0-13.0) 01/25/22 05:56 Eos % (Auto) 0.3 % (0.9-2.9) L 01/25/22 05:56 Baso % (Auto) 0.3 % (0.2-1.0) 01/25/22 05:56 Neut # (Auto) 9.9 x10^3/uL (2.2-4.8) H 01/25/22 05:56 Lymph # (Auto) 0.6 X10^3/uL (1.3-2.9) L 01/25/22 05:56 [place] # (Auto) 0.7 x10^3/uL (0.3-0.8) 01/25/22 05:56 Eos # (Auto) 0.0 x10^3/uL (0.0-0.2) 01/25/22 05:56 Baso # (Auto) 0.0 X10^3/uL (0.0-0.1) 01/25/22 05:56 Absolute Nucleated RBC 0.0 /100WBC 01/25/22 05:56 Sodium 139 mmol/L (136-145) 01/25/22 05:56 Corrected Sodium 140 mmol/L (136-145) 01/25/22 05:56 Potassium 4.1 mmol/L (3.5-5.1) 01/25/22 05:56 Chloride 103 mmol/L (98-107) 01/25/22 05:56 Carbon Dioxide 28.6 mmol/L (21-32) 01/25/22 05:56 BUN 10 mg/dL (7-18) 01/25/22 05:56 Creatinine 0.61 mg/dL (0.55-1.02) 01/25/22 05:56 Est GFR (MDRD) Af Amer > 60 (>60) 01/25/22 05:56 Est GFR (MDRD) Non-Af > 60 (>60) 01/25/22 05:56 Glucose 122 mg/dL (65-99) H 01/25/22 05:56 POC Glucose (mg/dL) 126 mg/dL (65-99) H 01/25/22 16:28 Calcium 8.7 mg/dL (8.5-10.1) 01/25/22 05:56 Corrected Calcium 9.5 mg/dL (8.5-10.1) 01/25/22 05:56 Magnesium 1.5 mg/dL (1.7-2.9) L 01/25/22 05:56 Total Bilirubin 0.40 mg/dL (0.2-1.0) 01/25/22 05:56 AST 14 Units/L (15-37) L 01/25/22 05:56 ALT 14 Units/L (12-78) 01/25/22 05:56 Alkaline Phosphatase 82 Units/L (46-116) 01/25/22 05:56 Total Protein 6.3 g/dL (6.4-8.2) L 01/25/22 05:56 Albumin 3.0 g/dL (3.4-5.0) L 01/25/22 05:56 Globulin 3.3 g/dL (2.5-4.5) 01/25/22 05:56 Albumin/Globulin Ratio 0.9 Ratio (1.1-2.1) L 01/25/22 05:56 Specimen Type Clean catch urine 01/23/22 23:51 Urine Color Yellow (YELLOW) 01/23/22 23:51 Urine Appearance Clear (CLEAR) 01/23/22 23:51 Urine pH 5.0 (5.0 - 8.0) 01/23/22 23:51 Ur Specific [place] 1.030 (1.000-1.030) 01/23/22 23:51 Urine Protein 1+ (NEGATIVE) 01/23/22 23:51 Urine Glucose (UA) Negative (NEGATIVE) 01/23/22 23:51 Urine Ketones Negative (NEGATIVE) 01/23/22 23:51 Urine Blood 1+ (NEGATIVE) 01/23/22 23:51 Urine Nitrite Negative (NEGATIVE) 01/23/22 23:51 Urine Bilirubin 1+ (NEGATIVE) 01/23/22 23:51 Urine Urobilinogen 1+ (NORMAL) 01/23/22 23:51 Ur Leukocyte Esterase 1+ (NEGATIVE) 01/23/22 23:51 Urine RBC 0-2 /HPF (0-3) 01/23/22 23:51 Urine WBC 0-2 /HPF (0-5) 01/23/22 23:51 Ur Squamous Epith Cells Moderate /HPF (NEGATIVE) 01/23/22 23:51 Calcium Oxalate Crystal Numerous /HPF (NEGATIVE) 01/23/22 23:51 Urine Bacteria Trace /HPF (NEGATIVE) 01/23/22 23:51 Ur Culture Indicated? No/not indicated 01/23/22 23:51 SARS-CoV-2 (PCR) Negative (NEGATIVE) 01/24/22 01:53 Plan (1) Small bowel obstruction: Status: Acute Plan: GENERAL SURGERY FOLLOWING, IV HYDRATION, NPO, ZOFRAN PRN, DILAUDID PRN (2) Volvulus: Status: Acute (3) COPD (chronic obstructive pulmonary disease): Status: Acute Plan: albuterol nebs as needed for shortness of breath. continue symbicort (4) Hypothyroidism: Status: Acute (5) Hypercholesteremia: Status: Acute (6) Insomnia: Status: Acute (7) Acid reflux disease: Status: Acute Plan: protonix 40mg iv q12h
[2022-01-25] MEDS ORDERED: BETADINE SOLN ONE (19:47)
[2022-01-25] MEDS ORDERED: REGLAN INJ 10 MG VIAL IVP PRN (20:04)
[2022-01-25] MEDS ORDERED: PHENERGAN INJ 25 MG IM PRN (20:04)
[2022-01-25] MEDS ORDERED: BENADRYL INJ 50 MG VIAL IVP PRN (20:04)
[2022-01-25] MEDS ORDERED: ZOFRAN INJ 4 MG VIAL IVP PRN (20:04)
[2022-01-25] MEDS ORDERED: BARHEMSYS INJ IVP PRN (20:04)
[2022-01-25] MEDS ORDERED: DILAUDID INJ ONE (20:15)
[2022-01-25] MEDS: LIPITOR TAB 10 MG PO SCH (20:49)
[2022-01-25] MEDS: D5 1/2 NS 1,000 ML 1,000 ML IV SCH (20:49)
[2022-01-26] MEDS: DILAUDID INJ IVP PRN ×5 (02:51→23:59)
[2022-01-26] MEDS: NS 1,000 ML IV 1,000 ML IV SCH ×3 (02:53→20:05)
[2022-01-26] MEDS: D5 1/2 NS 1,000 ML 1,000 ML IV SCH ×3 (05:03→20:04)
[2022-01-26] MEDS: CLEOCIN 600 MG IV PREMIX 600 MG/50 ML BAG IV SCH ×3 (05:31→21:17)
[2022-01-26 05:49] LABS: BASOPHILS % (AUTO) 0.1 % (0.2-1.0); EOSINOPHILS # (AUTO) 0.1 x10^3/uL (0.0-0.2); EOSINOPHILS % (AUTO) 1.8 % (0.9-2.9); HEMATOCRIT 38.4 % (36.0-47.0); LYMPHOCYTES # (AUTO) 0.4 X10^3/uL (1.3-2.9); LYMPHOCYTES % (AUTO) 8.5 % (21.0-51.0); MEAN CORPUSCULAR HEMOGLOBIN 29.7 pg (27.0-34.0); MEAN CORPUSCULAR VOLUME 87.4 fL (80.0-100.0); MEAN PLATELET VOLUME 9.7 fL (7.4-11.0); MONOCYTES # (AUTO) 0.5 x10^3/uL (0.3-0.8); MONOCYTES % (AUTO) 10.7 % (0.0-13.0); NEUTROPHILS # (AUTO) 3.6 x10^3/uL (2.2-4.8); NEUTROPHILS % (AUTO) 78.9 % (42.0-75.0); RED CELL DISTRIBUTION WIDTH 13.9 % (11.6-16.5); WHITE BLOOD COUNT 4.6 X10^3/uL (3.6-10.0)
[2022-01-26 06:14] LABS: ALANINE AMINOTRANSFERASE 18 Units/L (12-78); ALBUMIN 2.3 g/dL (3.4-5.0); ALKALINE PHOSPHATASE 62 Units/L (46-116); ASPARTATE AMINO TRANSFERASE 18 Units/L (15-37); BLOOD UREA NITROGEN 12 mg/dL (7-18); CALCIUM 8.1 mg/dL (8.5-10.1); CARBON DIOXIDE 27.2 mmol/L (21-32); CHLORIDE 103 mmol/L (98-107); COR CA(FOR HYPOALB) 9.5 mg/dL (8.5-10.1); COR NA(FOR HYPERGLY) 138 mmol/L (136-145); CREATININE 0.57 mg/dL (0.55-1.02); MAGNESIUM 1.5 mg/dL (1.7-2.9); SODIUM 137 mmol/L (136-145); TOTAL PROTEIN 5.2 g/dL (6.4-8.2); eGFR NON BLACK RACES > 60 (>60)
[2022-01-26] MEDS: MAGNESIUM SULFATE 1 GRAM/100 mL PREMIX 1 G/100 ML BAG IV PRN ×2 (07:20→10:55)
--- NOTE | 2022-01-26 08:23 | DR.PROGNOT ---
Hospital Progress Notes - Progress Note for Day of: Progress Note Date: 01/26/22 - Chief Complaint Chief Complaint: post op day 1. laparotomy , lysis of adhesions , appendectomy . - Past Medical Family Social History Past Med/Fam/Surg Hx: No changes since H&P Allergies: Allergies cephalexin [From Keflex] Allergy (Verified 01/23/22 23:43) - Review Of Systems ROS: No change since H&P - Vital Signs Vital Signs: Temperature 98.7 F Pulse Rate [Left Brachial] 96 Pulse Rate 95 Respiratory Rate 20 Blood Pressure [Right Arm] 102/52 Blood Pressure [Left Arm] 124/60 Blood Pressure 100/50 O2 Sat by Pulse Oximetry 94 - Physical Exam Oriented: Normal, Time, Person, Place Eyes: Normal Ear: Normal Nose: Normal Throat: Normal Cardiovascular: Normal : Normal GI:Auscultation: Decreased GI:Palpation: Other (Diffuse tenderness to abdominal palpation) GI: Tenderness: Diffuse (soft abdomen with diffuse tenderness . BS hypoactive ) Skin: Normal Musculoskeletal: Normal Psychiatric: Normal Mood Description: Calm Affect: Normal Speech Pattern: Clear - Laboratory and Diagnostics Result Diagrams: 01/26/22 04:40 01/26/22 04:40 Labs: Laboratory WBC 4.6 X10^3/uL (3.6-10.0) 01/26/22 04:40 RBC 4.40 X10^6/uL (3.5-5.4) 01/26/22 04:40 Hgb 13.0 g/dL (12.0-16.0) 01/26/22 04:40 Hct 38.4 % (36.0-47.0) 01/26/22 04:40 MCV 87.4 fL (80.0-100.0) 01/26/22 04:40 MCH 29.7 pg (27.0-34.0) 01/26/22 04:40 MCHC 34.0 g/dL (33.0-35.0) 01/26/22 04:40 RDW 13.9 % (11.6-16.5) 01/26/22 04:40 Plt Count 158 X10^3/uL (150.0-450.0) 01/26/22 04:40 MPV 9.7 fL (7.4-11.0) 01/26/22 04:40 Neut % (Auto) 78.9 % (42.0-75.0) H 01/26/22 04:40 Lymph % (Auto) 8.5 % (21.0-51.0) L 01/26/22 04:40 [place] % (Auto) 10.7 % (0.0-13.0) 01/26/22 04:40 Eos % (Auto) 1.8 % (0.9-2.9) 01/26/22 04:40 Baso % (Auto) 0.1 % (0.2-1.0) L 01/26/22 04:40 Neut # (Auto) 3.6 x10^3/uL (2.2-4.8) 01/26/22 04:40 Lymph # (Auto) 0.4 X10^3/uL (1.3-2.9) L 01/26/22 04:40 [place] # (Auto) 0.5 x10^3/uL (0.3-0.8) 01/26/22 04:40 Eos # (Auto) 0.1 x10^3/uL (0.0-0.2) 01/26/22 04:40 Baso # (Auto) 0.0 X10^3/uL (0.0-0.1) 01/26/22 04:40 Absolute Nucleated RBC 0.1 /100WBC 01/26/22 04:40 Sodium 137 mmol/L (136-145) 01/26/22 04:40 Corrected Sodium 138 mmol/L (136-145) 01/26/22 04:40 Potassium 3.9 mmol/L (3.5-5.1) 01/26/22 04:40 Chloride 103 mmol/L (98-107) 01/26/22 04:40 Carbon Dioxide 27.2 mmol/L (21-32) 01/26/22 04:40 BUN 12 mg/dL (7-18) 01/26/22 04:40 Creatinine 0.57 mg/dL (0.55-1.02) 01/26/22 04:40 Est GFR (MDRD) Af Amer > 60 (>60) 01/26/22 04:40 Est GFR (MDRD) Non-Af > 60 (>60) 01/26/22 04:40 Glucose 146 mg/dL (65-99) H 01/26/22 04:40 POC Glucose (mg/dL) 141 mg/dL (65-99) H 01/25/22 21:32 Calcium 8.1 mg/dL (8.5-10.1) L 01/26/22 04:40 Corrected Calcium 9.5 mg/dL (8.5-10.1) 01/26/22 04:40 Magnesium 1.5 mg/dL (1.7-2.9) L 01/26/22 04:40 Total Bilirubin 0.40 mg/dL (0.2-1.0) 01/26/22 04:40 AST 18 Units/L (15-37) 01/26/22 04:40 ALT 18 Units/L (12-78) 01/26/22 04:40 Alkaline Phosphatase 62 Units/L (46-116) 01/26/22 04:40 Total Protein 5.2 g/dL (6.4-8.2) L 01/26/22 04:40 Albumin 2.3 g/dL (3.4-5.0) L 01/26/22 04:40 Globulin 2.9 g/dL (2.5-4.5) 01/26/22 04:40 Albumin/Globulin Ratio 0.8 Ratio (1.1-2.1) L 01/26/22 04:40 Specimen Type Clean catch urine 01/23/22 23:51 Urine Color Yellow (YELLOW) 01/23/22 23:51 Urine Appearance Clear (CLEAR) 01/23/22 23:51 Urine pH 5.0 (5.0 - 8.0) 01/23/22 23:51 Ur Specific [place] 1.030 (1.000-1.030) 01/23/22 23:51 Urine Protein 1+ (NEGATIVE) 01/23/22 23:51 Urine Glucose (UA) Negative (NEGATIVE) 01/23/22 23:51 Urine Ketones Negative (NEGATIVE) 01/23/22 23:51 Urine Blood 1+ (NEGATIVE) 01/23/22 23:51 Urine Nitrite Negative (NEGATIVE) 01/23/22 23:51 Urine Bilirubin 1+ (NEGATIVE) 01/23/22 23:51 Urine Urobilinogen 1+ (NORMAL) 01/23/22 23:51 Ur Leukocyte Esterase 1+ (NEGATIVE) 01/23/22 23:51 Urine RBC 0-2 /HPF (0-3) 01/23/22 23:51 Urine WBC 0-2 /HPF (0-5) 01/23/22 23:51 Ur Squamous Epith Cells Moderate /HPF (NEGATIVE) 01/23/22 23:51 Calcium Oxalate Crystal Numerous /HPF (NEGATIVE) 01/23/22 23:51 Urine Bacteria Trace /HPF (NEGATIVE) 01/23/22 23:51 Ur Culture Indicated? No/not indicated 01/23/22 23:51 SARS-CoV-2 (PCR) Negative (NEGATIVE) 01/24/22 01:53 Tissue Pathology To follow 01/25/22 19:10 - Assessment and Plan 2: post op laparotomy , lysis of adhesions , appendectomy . for SBO . abdominal adhesions .. hypothyroidism . anxiety . COPD. GERD .. to D/C NGT and Batista , OOB with binder , incentive spirometer , clear liquid - Problem Patient Problems: Patient Problems Volvulus (Acute) K56.2
[2022-01-26] MEDS: PROVENTIL NEB TX 0.083% 2.5MG/ 3ML NEB PRN ×3 (08:35→21:04)
[2022-01-26] MEDS: PULMICORT NEB TX 0.5 MG NEB SCH ×2 (08:35→21:04)
[2022-01-26] MEDS: PROTONIX INJ 40 MG VIAL IVP SCH ×2 (09:50→21:17)
[2022-01-26] MEDS: FOLIC ACID TAB 1 MG PO SCH (09:50)
[2022-01-26] MEDS: ESTRACE PO SCH (09:50)
[2022-01-26] MEDS: LEVAQUIN PREMIX IV 500 MG 500 MG/100 ML BAG IV SCH (09:50)
[2022-01-26] MEDS ORDERED: MAALOX or MYLANTA PO PRN (10:48)
[2022-01-26] MEDS: LIPITOR TAB 10 MG PO SCH (21:16)
[2022-01-27] MEDS: D5 1/2 NS 1,000 ML 1,000 ML IV SCH (04:34)
[2022-01-27] MEDS: CLEOCIN 600 MG IV PREMIX 600 MG/50 ML BAG IV SCH (05:11)
[2022-01-27] MEDS: DILAUDID INJ IVP PRN (05:12)
[2022-01-27 06:23] LABS: BASOPHILS % (AUTO) 0.2 % (0.2-1.0); EOSINOPHILS # (AUTO) 0.1 x10^3/uL (0.0-0.2); EOSINOPHILS % (AUTO) 1.1 % (0.9-2.9); HEMATOCRIT 34.9 % (36.0-47.0); HEMOGLOBIN 12.3 g/dL (12.0-16.0); LYMPHOCYTES # (AUTO) 0.7 X10^3/uL (1.3-2.9); LYMPHOCYTES % (AUTO) 8.6 % (21.0-51.0); MEAN CORPUSCULAR HEMOGLOBIN 30.4 pg (27.0-34.0); MEAN CORPUSCULAR HGB CONC 35.1 g/dL (33.0-35.0); MEAN CORPUSCULAR VOLUME 86.4 fL (80.0-100.0); MEAN PLATELET VOLUME 9.4 fL (7.4-11.0); MONOCYTES # (AUTO) 0.8 x10^3/uL (0.3-0.8); MONOCYTES % (AUTO) 10.1 % (0.0-13.0); NEUTROPHILS # (AUTO) 6.6 x10^3/uL (2.2-4.8); RED BLOOD COUNT 4.04 X10^6/uL (3.5-5.4); RED CELL DISTRIBUTION WIDTH 13.4 % (11.6-16.5); WHITE BLOOD COUNT 8.3 X10^3/uL (3.6-10.0)
[2022-01-27 06:39] LABS: ALANINE AMINOTRANSFERASE 19 Units/L (12-78); ALBUMIN 2.2 g/dL (3.4-5.0); ALKALINE PHOSPHATASE 70 Units/L (46-116); ASPARTATE AMINO TRANSFERASE 28 Units/L (15-37); BLOOD UREA NITROGEN 13 mg/dL (7-18); CALCIUM 8.3 mg/dL (8.5-10.1); CHLORIDE 100 mmol/L (98-107); COR CA(FOR HYPOALB) 9.7 mg/dL (8.5-10.1); COR NA(FOR HYPERGLY) 135 mmol/L (136-145); CREATININE 0.43 mg/dL (0.55-1.02); MAGNESIUM 1.8 mg/dL (1.7-2.9); SODIUM 135 mmol/L (136-145); TOTAL PROTEIN 5.3 g/dL (6.4-8.2); eGFR NON BLACK RACES > 60 (>60)
[2022-01-27] MEDS: PULMICORT NEB TX 0.5 MG NEB SCH (08:17)
[2022-01-27] MEDS: PROVENTIL NEB TX 0.083% 2.5MG/ 3ML NEB PRN (08:17)
[2022-01-27 08:43] VITALS: BP 111/58
[2022-01-27] MEDS: ESTRACE PO SCH (09:59)
[2022-01-27] MEDS: LEVAQUIN PREMIX IV 500 MG 500 MG/100 ML BAG IV SCH (10:00)
[2022-01-27] MEDS: PROTONIX INJ 40 MG VIAL IVP SCH (10:00)
[2022-01-27] MEDS: FOLIC ACID TAB 1 MG PO SCH (10:00)
== END 2022-01-27 11:10 | disposition home or self-care (01) | DRG 337 ==
LOC: MED/SURG 23:32 → ER 23:32 → MED/SURG 01-24 03:05
PROVIDERS: ADMIT Surgery; ATTEND Surgery
DX: K21.9 Gastro-esophageal reflux disease without esophagitis; E78.00 Pure hypercholesterolemia, unspecified; K56.609 Unspecified intestinal obstruction, unspecified as to partial versus complete obstruction; Z20.822 Contact with and (suspected) exposure to COVID-19; J44.9 Chronic obstructive pulmonary disease, unspecified; E03.8 Other specified hypothyroidism; K56.2 Volvulus; R26.89 Other abnormalities of gait and mobility

== ENCOUNTER 2022-01-31 22:09 | Inpatient (IN) ==
--- NOTE | 2022-01-31 23:21 | DR.GENAD ---
HPI Time Seen Time Seen by Provider: 01/31/22 23:20 PCP Primary Care Physician: ANISH ENRIQUE IN [place] HPI Comment HPI Comment: PATIENT IS 61YR OLD FEMALE IN ER WITH NOT BEING ABLE TO SWALLOW AND HAVING ABDOMINAL PAIN. SHE IS WEAK AND TIRED. NOT EATING OR DRINKING. SHE WAS ADMITTED TO HOSPITAL HERE ON 01/24/2022 FOR ABDOMINAL PAIN AND BOWEL OBSTRUCTI ON. EXPLORATORY LAP WITH APPENDECTOMY AND LYSIS OF ADHESION INVOLVING PELVIS, TERMINAL ILIUM AND APPENDIX. PATIENT WAS DISCHARGE HOME 01/27/2022. SHE IS NOT ABLE TO HOLD DOWN FLUIDS MEDICATIONS OR ANY FOOD. EVERY SHE EATS COME BACK UP. SHEIS RUNNING LOWGRADE FEVER. Complaint/Symptoms Chief Complaint Doctors Comments: ABDOMINAL PAIN. UNABLE TO SWALLOW. Chief Complaint:: PT AMBULATORY IN ED WITH C/O UNABLE TO EAT OR DRINK WITHOUT IT COMING BACK UP. PT WAS INPT FROM 01/25/22-01/27/22. DR. MARS PERFORMED AN EXPLORATORY LAP WITH LYSIS OF ABD AND PELVIC ADHESIONS, RELEASE OF MECHANICAL SMALL BOWEL OBSTRUCTION AND APPENDECTOMY ON 01/25/22. COVID-19 Coronavirus risk:travel/contact w/high risk person: No Has patient experienced Coronavirus symptoms: No Nurses notes reviewed Nurses Notes Review: Yes Source History Provided: Patient Mode of Arrival Mode of Arrival: Ambulatory Timing Onset of Chief Complaint: 01/27/22 Duration Duration: Constant How lon Duration: Days Severity Severity: Moderate Modifying Factors Worsens:: EATING. Improves:: NOTHING. PMH PMH Past Medical History: Yes Past Medical History: Asthma, COPD, Dyslipidemia, GERD and Hypothyroidism Past Surgical History: Yes Surgical History: Appendectomy, Bowel Resection and Hysterectomy Family History History of Family Medical Conditions: Yes Family Medical History: Cancer Social History Does patient currently use any type of tobacco product: Yes Have you used tobacco products in the last 12 months: Yes Type of Tobacco Use: Cigarettes Does any household member use tobacco: No Alcohol Use: None Do you use any recreational Drugs:: No Lives With: Spouse Lives Where: Home Travel Risk Coronavirus risk:travel/contact w/high risk person: No Has patient experienced Coronavirus symptoms: No Infectious screening In the last 2 months have you had wt loss of >10#?: NO Have you had fever, night sweats or hemotysis?: No Have you traveled outside the country in the last 6 months?: No Isolation: Standard ROS Review of Systems Constitutional: See HPI, Fever, Weakness, Fatigue and Loss of Appetite Eyes: No Symptoms Reported and See HPI ENTM: See HPI; negative Nose Discharge or Nose Congestion Respiratoy: No Symptoms Reported and See HPI; negative Moist Cough, Short of Breath or Wheezing Cardiovascular: No Symptoms Reported and See HPI; negative Chest Pain Gastrointestinal/Abdominal: See HPI, Abdominal Pain, Vomiting and Other (UNABLE TO SWALLOW.) Genitourinary: No Symptoms Reported and See HPI; negative Dysuria Neurological: See HPI and Weakness; negative Headache or Dizziness Musculoskeletal: No Symptoms Reported and See HPI; negative Muscle Pain Integumentary: See HPI and Dryness Hematologic/Lymphatic: No Symptoms Reported and See HPI; negative Easy Bruising Endocrine: See HPI, Increased Thirst and Decreased Appetite; negative Increased Urine (DECREASE URINE.) Psychiatric: No Symptoms Reported and See HPI All Other Systems: Reviewed and Negative PE Vital Signs Vitals: Temperature 99.3 F Pulse Rate 85 Respiratory Rate 20 Blood Pressure [Right Arm] 111/58 Blood Pressure 111/52 O2 Sat by Pulse Oximetry 92 General Limitations: No Limitations General Appearance: Alert and In No Apparent Distress Head Head Exam: Normal Inspection and Atraumatic Eyes Eye exam: Normal Appearance and PERRL; negative Scleral Icterus or Conjunctival Injection ENT ENT Exam: Normal Exam, Normal Oropharynx, Normal External Ear Exam and TM's Normal Bilaterally External Ear Exam: Normal External Inspection; negative Mastoid Tenderness TM/Canal Exam: Bilateral: Normal Nose Exam: Normal Nose Exam Mouth Exam: Normal Inspection; negative Lip Swelling or Tongue Swelling Throat Exam: Tonsillar Erythema (SLIGHT ERYTHEMIA); negative Tonsillomegaly or Tonsillar Exudate Neck Neck Exam: Normal Inspection and Trachea Midline; negative Tenderness Chest Chest Inspection: Normal Inspection and Symmetric Chest Wall Rise; negative Tenderness Respiratory Respiratory Exam: Normal Lung Sounds Bilat; negative Accessory Muscle Use, Chest Wall Tenderness or Respiratory Distress Respiratory Exam: Bilateral: Rhonchi Cardiovascular Cardiovascular Exam: Regular Rate, Normal Rhythm and Normal Heart Sounds; negative Systolic Murmur or Diastolic Murmur Abdominal Exam Abdominal Exam: Normal Bowel Sounds, Soft and Tenderness Abdominal Tenderness: Diffuse and Moderate Extremities Extremities Exam: Normal Inspection and Normal Capillary Refill Back Back Exam: Normal Inspection; negative (R) CVA Tenderness or (L) CVA Tenderness Neurologic Neurological Exam: Alert and Oriented X3; negative Motor Sensory Deficit Psychiatric Psychiatric Exam: Normal Affect and Normal Mood Skin Skin Exam: Dry MDM Differential Diagnosis Differential Diagnosis: UNABLE TO SWALLOW, ABDOMINAL PAIN, COURSE Treatment Treatment: SEE ORDERS DONE WHILE IN ER. NS, ZOSYN DILAUDID AND ZOFRAN GIVEN WHILE IN ER. Consultation Consultation Comments: DISCUSSED PATIENT WITH DR. PASCUAL. HE WILL ADMIT PATIENT. Education/Counseling Education/Counseling: Patient and Family Educated On: Diagnosis ROR Labs Reviewed Laboratory Results Reviewed?: Yes Result Diagrams: 02/03/22 06:12 02/03/22 06:12 Laboratory: WBC 14.9 X10^3/uL (3.6-10.0) H 02/01/22 00:00 RBC 4.93 X10^6/uL (3.5-5.4) 02/01/22 00:00 Hgb 14.4 g/dL (12.0-16.0) 02/01/22 00:00 Hct 42.6 % (36.0-47.0) 02/01/22 00:00 MCV 86.4 fL (80.0-100.0) 02/01/22 00:00 MCH 29.3 pg (27.0-34.0) 02/01/22 00:00 MCHC 33.9 g/dL (33.0-35.0) 02/01/22 00:00 RDW 13.9 % (11.6-16.5) 02/01/22 00:00 Plt Count 338 X10^3/uL (150.0-450.0) 02/01/22 00:00 MPV 7.9 fL (7.4-11.0) 02/01/22 00:00 Neut % (Auto) 86.5 % (42.0-75.0) H 02/01/22 00:00 Lymph % (Auto) 6.2 % (21.0-51.0) L 02/01/22 00:00 [place] % (Auto) 5.8 % (0.0-13.0) 02/01/22 00:00 Eos % (Auto) 1.1 % (0.9-2.9) 02/01/22 00:00 Baso % (Auto) 0.4 % (0.2-1.0) 02/01/22 00:00 Neut # (Auto) 12.9 x10^3/uL (2.2-4.8) H 02/01/22 00:00 Lymph # (Auto) 0.9 X10^3/uL (1.3-2.9) L 02/01/22 00:00 [place] # (Auto) 0.9 x10^3/uL (0.3-0.8) H 02/01/22 00:00 Eos # (Auto) 0.2 x10^3/uL (0.0-0.2) 02/01/22 00:00 Baso # (Auto) 0.1 X10^3/uL (0.0-0.1) 02/01/22 00:00 Absolute Nucleated RBC 0.0 /100WBC 02/01/22 00:00 Sodium 136 mmol/L (136-145) 02/01/22 00:00 Corrected Sodium 136 mmol/L (136-145) 02/01/22 00:00 Potassium 4.3 mmol/L (3.5-5.1) 02/01/22 00:00 Chloride 101 mmol/L (98-107) 02/01/22 00:00 Carbon Dioxide 30.2 mmol/L (21-32) 02/01/22 00:00 BUN 11 mg/dL (7-18) 02/01/22 00:00 Creatinine 0.65 mg/dL (0.55-1.02) 02/01/22 00:00 Est GFR (MDRD) Af Amer > 60 (>60) 02/01/22 00:00 Est GFR (MDRD) Non-Af > 60 (>60) 02/01/22 00:00 Glucose 113 mg/dL (65-99) H 02/01/22 00:00 Calcium 8.8 mg/dL (8.5-10.1) 02/01/22 00:00 Corrected Calcium 9.8 mg/dL (8.5-10.1) 02/01/22 00:00 Total Bilirubin 0.40 mg/dL (0.2-1.0) 02/01/22 00:00 AST 16 Units/L (15-37) 02/01/22 00:00 ALT 20 Units/L (12-78) 02/01/22 00:00 Alkaline Phosphatase 72 Units/L (46-116) 02/01/22 00:00 Total Protein 6.2 g/dL (6.4-8.2) L 02/01/22 00:00 Albumin 2.7 g/dL (3.4-5.0) L 02/01/22 00:00 Globulin 3.5 g/dL (2.5-4.5) 02/01/22 00:00 Albumin/Globulin Ratio 0.8 Ratio (1.1-2.1) L 02/01/22 00:00 Amylase 42 Units/L (25-115) 02/01/22 00:00 Lipase 137 Units/L (73-393) 02/01/22 00:00 SARS-CoV-2 (PCR) Negative (NEGATIVE) 02/01/22 01:11 Influenza Type A (PCR) Negative (NEGATIVE) 02/01/22 01:11 Influenza Type B (PCR) Negative (NEGATIVE) 02/01/22 01:11 RSV (PCR) Negative (NEGATIVE) 02/01/22 01:11 XRAY XRAY Interpreted by: Radiologist (REPORT NOTED.) Opioid Opioid Risk Tool Age (Darryl box if 16-45): No History of Preadolescent Sexual Abuse: No Total: 0 Total Score Risk Category: Low Risk Copyright: Myles PONCE predicting aberrant behaviors Discharge Plan Diagnosis Discharge Problem: Bowel obstruction, Pneumonia, Abdominal pain, acute, Abnormal swallowing Discharge Plan Patient Disposition: ADMITTED INPATIENT Condition: Stable
[2022-01-31] MEDS ORDERED: NS 1,000 ML IV 1,000 ML ONE (23:45)
[2022-01-31] MEDS: NS 1,000 ML IV 1,000 ML IV SCH (23:55)
[2022-02-01 00:15] LABS: BASOPHILS # (AUTO) 0.1 X10^3/uL (0.0-0.1); BASOPHILS % (AUTO) 0.4 % (0.2-1.0); EOSINOPHILS # (AUTO) 0.2 x10^3/uL (0.0-0.2); EOSINOPHILS % (AUTO) 1.1 % (0.9-2.9); HEMATOCRIT 42.6 % (36.0-47.0); HEMOGLOBIN 14.4 g/dL (12.0-16.0); LYMPHOCYTES # (AUTO) 0.9 X10^3/uL (1.3-2.9); LYMPHOCYTES % (AUTO) 6.2 % (21.0-51.0); MEAN CORPUSCULAR HEMOGLOBIN 29.3 pg (27.0-34.0); MEAN CORPUSCULAR HGB CONC 33.9 g/dL (33.0-35.0); MEAN CORPUSCULAR VOLUME 86.4 fL (80.0-100.0); MEAN PLATELET VOLUME 7.9 fL (7.4-11.0); MONOCYTES # (AUTO) 0.9 x10^3/uL (0.3-0.8); MONOCYTES % (AUTO) 5.8 % (0.0-13.0); NEUTROPHILS # (AUTO) 12.9 x10^3/uL (2.2-4.8); NEUTROPHILS % (AUTO) 86.5 % (42.0-75.0); RED BLOOD COUNT 4.93 X10^6/uL (3.5-5.4); RED CELL DISTRIBUTION WIDTH 13.9 % (11.6-16.5); WHITE BLOOD COUNT 14.9 X10^3/uL (3.6-10.0)
--- NOTE | 2022-02-01 00:49 | CT ---
HISTORYPT C/O N/V, ABD PAIN. PT WAS INPT FROM 01/25/22-01/27/22. EXPLORATORY LAP WITH LYSIS OF ABD AND PELVIC ADHESIONS, RELEASE OF MECHANICAL SMALL BOWEL OBSTRUCTION AND APPENDECTOMY ON 01/25/22.STUDYABDOMEN/PELVIS W/O CONCOMPARISONNone.TECHNIQUESerial axial images were obtained from the lung bases to the pubic symphysis without the administration of intravenous contrast. Soft tissue, lung windows and bone window images were interpreted. Dose reduction techniques were utilized.FINDINGSThe heart is not enlarged. The lung bases reveal patchy hazy densities/alveolar infiltrates to the right middle lobe and lingula. There is linear subsegmental atelectasis of the right lung base as well as discoid subsegmental atelectasis of the right lung base. There is a small loculated right pleural effusion and compressive atelectasis of the right lung base..There is perihepatic ascites and a small amount of perisplenic ascites. The fluid extends into the paracolic gutters bilaterally. The liver is normal in size and reveals no focal lesions. There is no intrahepatic biliary ductal dilatation or obvious common bile duct dilatation. The gallbladder is unremarkable. The gallbladder reveals no radiopaque gallstones. The spleen is unremarkable, revealing no focal lesions. The pancreas and adrenal glands are unremarkable.The aorta and inferior vena cava are unremarkable. No significant para-aortic or retroperitoneal lymphadenopathy is identified.There are no radiopaque renal, ureteric or urinary bladder calculi. There is no hydronephrosis or obstructive uropathy.There are surgical skin yamileth/clips seen within the ventral midline abdominal wall. Examination of the bowel, greater omentum and mesentery reveals distention of multiple loops of large and small bowel throughout the entire abdomen and pelvis. These are also fluid-filled. Markedly distended loops of small bowel are also seen with thickening of the juárez of the jejunal small bowel loops in the left upper quadrant. The appendix is not visualized. There is no secondary evidence for acute appendicitis. There is fatty replacement of the juárez of the terminal ileum and right hemicolon suggestive of the sequelae of previous remote and recurrent enterocolitis type changes. Examination of the pelvis reveals no pathologic masses or fluid collections. The urinary bladder is unremarkable. There are pelvic phleboliths. Examination of the ventral abdominal wall reveals small gas pockets/subcutaneous emphysema subjacent to the incision site and seen within the left supra/paraumbilical region consistent with postoperative changes.IMPRESSION1. Recent ventral abdominal surgery with surgical skin yamileth seen within the midline of the ventral abdominal wall. There is dilatation of multiple loops of small and large bowel, predominately involving small bowel loops with decompressed terminal ileum and a fluid-filled right hemicolon. It is unclear if this represents a developing ileus versus distal small bowel obstruction. Fluid fills the large and small bowel loops with the exception of the terminal ileum and proximal cecal region.2. 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 Perihepatic ascites with a small amount of ascites throughout the abdomen and pelvis including mesenteric and omental edema.4. Discoid and linear subsegmental atelectasis of the right lower lobe with subtle alveolar infiltrates of the right middle lobe and lingula.Electronically signed by: Valeria Carcamo (Feb 01, 2022 00:47:44)
[2022-02-01 00:56] LABS: ALANINE AMINOTRANSFERASE 20 Units/L (12-78); ALBUMIN 2.7 g/dL (3.4-5.0); ALKALINE PHOSPHATASE 72 Units/L (46-116); AMYLASE 42 Units/L (25-115); ASPARTATE AMINO TRANSFERASE 16 Units/L (15-37); BLOOD UREA NITROGEN 11 mg/dL (7-18); CALCIUM 8.8 mg/dL (8.5-10.1); CARBON DIOXIDE 30.2 mmol/L (21-32); CHLORIDE 101 mmol/L (98-107); COR CA(FOR HYPOALB) 9.8 mg/dL (8.5-10.1); COR NA(FOR HYPERGLY) 136 mmol/L (136-145); CREATININE 0.65 mg/dL (0.55-1.02); LIPASE 137 Units/L (73-393); SODIUM 136 mmol/L (136-145); TOTAL PROTEIN 6.2 g/dL (6.4-8.2); eGFR NON BLACK RACES > 60 (>60)
[2022-02-01] MEDS ORDERED: DILAUDID INJ IM ONE (02:49)
[2022-02-01] MEDS ORDERED: ZOFRAN INJ 4 MG VIAL IVP ONE (02:49)
[2022-02-01] MEDS ORDERED: NS 1,000 ML IV 1,000 ML ONE (02:56)
[2022-02-01] MEDS ORDERED: DILAUDID INJ IVP ONE (03:09)
[2022-02-01] MEDS ORDERED: CLEOCIN 600 MG IV PREMIX 600 MG/50 ML BAG IV ONE ×2 (03:09→03:24)
[2022-02-01] MEDS ORDERED: SALINE 3% 15 ML NEB TX ONE (04:29)
[2022-02-01] MEDS ORDERED: SALINE 3% 15 ML NEB TX NEB ONE (04:34)
[2022-02-01] MEDS: NS 1,000 ML IV 1,000 ML IV SCH ×7 (05:34→23:17)
[2022-02-01] MEDS: CLEOCIN 600 MG IV PREMIX 600 MG/50 ML BAG IV SCH ×3 (05:35→23:16)
[2022-02-01 06:13] LABS: BASOPHILS # (AUTO) 0.1 X10^3/uL (0.0-0.1); BASOPHILS % (AUTO) 0.6 % (0.2-1.0); EOSINOPHILS # (AUTO) 0.2 x10^3/uL (0.0-0.2); EOSINOPHILS % (AUTO) 1.3 % (0.9-2.9); HEMATOCRIT 40.9 % (36.0-47.0); HEMOGLOBIN 13.7 g/dL (12.0-16.0); LYMPHOCYTES # (AUTO) 1.3 X10^3/uL (1.3-2.9); MEAN CORPUSCULAR HEMOGLOBIN 29.1 pg (27.0-34.0); MEAN CORPUSCULAR HGB CONC 33.4 g/dL (33.0-35.0); MEAN CORPUSCULAR VOLUME 87.2 fL (80.0-100.0); MEAN PLATELET VOLUME 8.2 fL (7.4-11.0); MONOCYTES # (AUTO) 0.9 x10^3/uL (0.3-0.8); MONOCYTES % (AUTO) 7.6 % (0.0-13.0); NEUTROPHILS # (AUTO) 9.1 x10^3/uL (2.2-4.8); NEUTROPHILS % (AUTO) 79.5 % (42.0-75.0); RED BLOOD COUNT 4.69 X10^6/uL (3.5-5.4); WHITE BLOOD COUNT 11.5 X10^3/uL (3.6-10.0)
[2022-02-01 06:28] LABS: ALANINE AMINOTRANSFERASE 19 Units/L (12-78); ALBUMIN 2.4 g/dL (3.4-5.0); ALKALINE PHOSPHATASE 68 Units/L (46-116); AMYLASE 37 Units/L (25-115); ASPARTATE AMINO TRANSFERASE 14 Units/L (15-37); BLOOD UREA NITROGEN 10 mg/dL (7-18); CALCIUM 8.3 mg/dL (8.5-10.1); CARBON DIOXIDE 26.5 mmol/L (21-32); CHLORIDE 103 mmol/L (98-107); COR CA(FOR HYPOALB) 9.6 mg/dL (8.5-10.1); CREATININE 0.58 mg/dL (0.55-1.02); LIPASE 117 Units/L (73-393); SODIUM 137 mmol/L (136-145); TOTAL PROTEIN 5.5 g/dL (6.4-8.2); eGFR NON BLACK RACES > 60 (>60)
[2022-02-01] MEDS: PULMICORT NEB TX 0.5 MG NEB SCH ×2 (08:00→21:00)
[2022-02-01] MEDS: PROVENTIL NEB TX 0.083% 2.5MG/ 3ML NEB SCH ×4 (08:00→21:00)
[2022-02-01] MEDS ORDERED: VIBRAMYCIN IV ONE ×2 (08:06→20:16)
[2022-02-01] MEDS: VIBRAMYCIN 100 MG in D5W 250 ML IV 250 ML IV SCH ×2 (08:24→20:42)
[2022-02-01] MEDS: VSL#3 PO SCH (08:30)
[2022-02-01] MEDS: DILAUDID INJ IVP PRN ×2 (08:30→19:06)
[2022-02-01] MEDS: ZOFRAN INJ 4 MG VIAL IVP PRN ×2 (08:33→15:30)
[2022-02-01] MEDS: LOVENOX INJ 40 MG SYR SC SCH (08:38)
[2022-02-01 08:56] VITALS: BMI 22.6
--- NOTE | 2022-02-01 10:59 | RAD ---
HISTORYPOST COLECTOMYSTUDYKUB x-ray one viewCOMPARISONCT 02/01/2022FINDINGSSkin yamileth are seen in the midline of the lower abdomen and pelvis. Dilated small bowel loops are seen measuring up to 4.0 cm in diameter. No colonic air is identified.IMPRESSIONSmall-bowel dilation could be postop ileus or small-bowel obstruction. Continued x-ray follow-up is recommended.Electronically signed by: Nilton Sweet (Feb 01, 2022 10:58:30)
--- NOTE | 2022-02-01 11:44 | US ---
HISTORYAbdomen painSTUDYGALL BLADDER ultrasoundCOMPARISONCT 02/01/2022TECHNIQUEMultiple roach scale and color flow Doppler images of the right upper quadrant of the abdomen were obtained with image documentation.FINDINGSLiver is top normal limits in size. No focal hepatic abnormality is seen. The abnormality seen CT is not identified. Hepatopetal portal venous flow is seen on Doppler ultrasound. Small amount of ascites is seen adjacent to the liver.Gallbladder appears normal. No biliary ductal dilation.Pancreas obscured due to bowel gas.No right renal abnormality. Right kidney measures 12.1 cm in length.Visualized portions of the IVC appear normal. Fluid-filled bowel loops are seen.IMPRESSIONNo suggestion of cholelithiasis or cholecystitis.Fluid-filled bowel loops are seen in the abdomen.Electronically signed by: Nilton Sweet (Feb 01, 2022 11:43:00)
[2022-02-01 13:37] LABS: BILIRUBIN,URINE 1+ (NEGATIVE); BLOOD/HEMOGLOBIN,URINE 1+ (NEGATIVE); GLUCOSE, URINE NEGATIVE (NEGATIVE); KETONES,URINE 3+ (NEGATIVE); LEUKOCYTE ESTERASE ,URINE NEGATIVE (NEGATIVE); NITRITES,URINE NEGATIVE (NEGATIVE); PROTEIN,URINE 1+ (NEGATIVE); UROBILINOGEN,URINE NORMAL (NORMAL)
[2022-02-01 13:52] LABS: APPEARANCE,URINE SLIGHTLY HAZY (CLEAR); COLOR,URINE AMBER (YELLOW)
[2022-02-01 13:53] LABS: BACTERIA,URINE 1+ /HPF (NEGATIVE); HYALINE CASTS, URINE FEW /LPF (NEGATIVE); SQUAMOUS EPITHELIAL CELL,UR MODERATE /HPF (NEGATIVE)
[2022-02-02] MEDS: DILAUDID INJ IVP PRN ×3 (02:37→19:49)
[2022-02-02] MEDS: NS 1,000 ML IV 1,000 ML IV SCH ×5 (03:46→21:22)
[2022-02-02] MEDS: CLEOCIN 600 MG IV PREMIX 600 MG/50 ML BAG IV SCH ×3 (05:22→22:23)
[2022-02-02 05:48] LABS: BASOPHILS # (AUTO) 0.2 X10^3/uL (0.0-0.1); BASOPHILS % (AUTO) 1.2 % (0.2-1.0); EOSINOPHILS # (AUTO) 0.2 x10^3/uL (0.0-0.2); EOSINOPHILS % (AUTO) 1.3 % (0.9-2.9); HEMATOCRIT 37.7 % (36.0-47.0); HEMOGLOBIN 12.7 g/dL (12.0-16.0); LYMPHOCYTES # (AUTO) 1.4 X10^3/uL (1.3-2.9); LYMPHOCYTES % (AUTO) 11.3 % (21.0-51.0); MEAN CORPUSCULAR HEMOGLOBIN 29.3 pg (27.0-34.0); MEAN CORPUSCULAR HGB CONC 33.6 g/dL (33.0-35.0); MEAN CORPUSCULAR VOLUME 87.1 fL (80.0-100.0); MEAN PLATELET VOLUME 8.5 fL (7.4-11.0); MONOCYTES # (AUTO) 0.9 x10^3/uL (0.3-0.8); MONOCYTES % (AUTO) 7.5 % (0.0-13.0); NEUTROPHILS # (AUTO) 9.9 x10^3/uL (2.2-4.8); NEUTROPHILS % (AUTO) 78.7 % (42.0-75.0); RED BLOOD COUNT 4.32 X10^6/uL (3.5-5.4); RED CELL DISTRIBUTION WIDTH 13.8 % (11.6-16.5); WHITE BLOOD COUNT 12.6 X10^3/uL (3.6-10.0)
[2022-02-02 06:03] LABS: ALANINE AMINOTRANSFERASE 18 Units/L (12-78); ALBUMIN 2.2 g/dL (3.4-5.0); ALKALINE PHOSPHATASE 60 Units/L (46-116); ASPARTATE AMINO TRANSFERASE 12 Units/L (15-37); BLOOD UREA NITROGEN 10 mg/dL (7-18); CARBON DIOXIDE 25.6 mmol/L (21-32); CHLORIDE 104 mmol/L (98-107); COR CA(FOR HYPOALB) 9.4 mg/dL (8.5-10.1); CREATININE 0.59 mg/dL (0.55-1.02); SODIUM 136 mmol/L (136-145); TOTAL PROTEIN 5.1 g/dL (6.4-8.2); eGFR NON BLACK RACES > 60 (>60)
[2022-02-02] MEDS ORDERED: VIBRAMYCIN IV ONE (08:04)
[2022-02-02] MEDS: VSL#3 PO SCH (08:26)
[2022-02-02] MEDS: VIBRAMYCIN 100 MG in D5W 250 ML IV 250 ML IV SCH ×2 (08:26→21:22)
[2022-02-02] MEDS: LOVENOX INJ 40 MG SYR SC SCH (08:35)
[2022-02-02] MEDS: PULMICORT NEB TX 0.5 MG NEB SCH ×2 (09:11→20:30)
[2022-02-02] MEDS: PROVENTIL NEB TX 0.083% 2.5MG/ 3ML NEB SCH ×4 (09:11→20:30)
--- NOTE | 2022-02-02 09:25 | DR.PROGNOT ---
Hospital Progress Notes - Progress Note for Day of: Progress Note Date: 02/02/22 - Chief Complaint Chief Complaint: c/o inability to swallow . no diarrhea today , no vomiting .. - Past Medical Family Social History Past Med/Fam/Surg Hx: No changes since H&P Allergies: Allergies cephalexin [From Keflex] Allergy (Verified 01/23/22 23:43) - Review Of Systems ROS: No change since H&P - Vital Signs Vital Signs: Temperature 98.6 F Pulse Rate [Left] 75 Pulse Rate 93 Respiratory Rate 18 Blood Pressure [Right Arm] 97/48 Blood Pressure 97/55 O2 Sat by Pulse Oximetry 86 - Physical Exam Oriented: Normal Eyes: Normal Ear: Normal Nose: Normal Throat: Normal Respiratory: OTHER (diminished BS both sides .( has COPD ) ) Cardiovascular: Normal : Normal GI:Auscultation: Decreased GI:Palpation: Other (soft , flat abdomen . clean incision , no infection . BS+ ( hypo active )) Speech Pattern: Clear, Appropriate - Laboratory and Diagnostics Result Diagrams: 02/02/22 04:55 02/02/22 04:55 Labs: Laboratory WBC 12.6 X10^3/uL (3.6-10.0) H 02/02/22 04:55 RBC 4.32 X10^6/uL (3.5-5.4) 02/02/22 04:55 Hgb 12.7 g/dL (12.0-16.0) 02/02/22 04:55 Hct 37.7 % (36.0-47.0) 02/02/22 04:55 MCV 87.1 fL (80.0-100.0) 02/02/22 04:55 MCH 29.3 pg (27.0-34.0) 02/02/22 04:55 MCHC 33.6 g/dL (33.0-35.0) 02/02/22 04:55 RDW 13.8 % (11.6-16.5) 02/02/22 04:55 Plt Count 262 X10^3/uL (150.0-450.0) 02/02/22 04:55 MPV 8.5 fL (7.4-11.0) 02/02/22 04:55 Neut % (Auto) 78.7 % (42.0-75.0) H 02/02/22 04:55 Lymph % (Auto) 11.3 % (21.0-51.0) L 02/02/22 04:55 [place] % (Auto) 7.5 % (0.0-13.0) 02/02/22 04:55 Eos % (Auto) 1.3 % (0.9-2.9) 02/02/22 04:55 Baso % (Auto) 1.2 % (0.2-1.0) H 02/02/22 04:55 Neut # (Auto) 9.9 x10^3/uL (2.2-4.8) H 02/02/22 04:55 Lymph # (Auto) 1.4 X10^3/uL (1.3-2.9) 02/02/22 04:55 [place] # (Auto) 0.9 x10^3/uL (0.3-0.8) H 02/02/22 04:55 Eos # (Auto) 0.2 x10^3/uL (0.0-0.2) 02/02/22 04:55 Baso # (Auto) 0.2 X10^3/uL (0.0-0.1) H 02/02/22 04:55 Absolute Nucleated RBC 0.0 /100WBC 02/02/22 04:55 Sodium 136 mmol/L (136-145) 02/02/22 04:55 Corrected Sodium TNP 02/02/22 04:55 Potassium 3.7 mmol/L (3.5-5.1) 02/02/22 04:55 Chloride 104 mmol/L (98-107) 02/02/22 04:55 Carbon Dioxide 25.6 mmol/L (21-32) 02/02/22 04:55 BUN 10 mg/dL (7-18) 02/02/22 04:55 Creatinine 0.59 mg/dL (0.55-1.02) 02/02/22 04:55 Est GFR (MDRD) Af Amer > 60 (>60) 02/02/22 04:55 Est GFR (MDRD) Non-Af > 60 (>60) 02/02/22 04:55 Glucose 80 mg/dL (65-99) 02/02/22 04:55 Calcium 8.0 mg/dL (8.5-10.1) L 02/02/22 04:55 Corrected Calcium 9.4 mg/dL (8.5-10.1) 02/02/22 04:55 Total Bilirubin 0.20 mg/dL (0.2-1.0) 02/02/22 04:55 AST 12 Units/L (15-37) L 02/02/22 04:55 ALT 18 Units/L (12-78) 02/02/22 04:55 Alkaline Phosphatase 60 Units/L (46-116) 02/02/22 04:55 Total Protein 5.1 g/dL (6.4-8.2) L 02/02/22 04:55 Albumin 2.2 g/dL (3.4-5.0) L 02/02/22 04:55 Globulin 2.9 g/dL (2.5-4.5) 02/02/22 04:55 Albumin/Globulin Ratio 0.8 Ratio (1.1-2.1) L 02/02/22 04:55 Amylase 37 Units/L (25-115) 02/01/22 05:45 Lipase 117 Units/L (73-393) 02/01/22 05:45 Specimen Type Clean catch urine 02/01/22 13:20 Urine Color [place] (YELLOW) 02/01/22 13:20 Urine Appearance Slightly hazy (CLEAR) 02/01/22 13:20 Urine pH 5.0 (5.0 - 8.0) 02/01/22 13:20 Ur Specific [place] 1.030 (1.000-1.030) 02/01/22 13:20 Urine Protein 1+ (NEGATIVE) 02/01/22 13:20 Urine Glucose (UA) Negative (NEGATIVE) 02/01/22 13:20 Urine Ketones 3+ (NEGATIVE) 02/01/22 13:20 Urine Blood 1+ (NEGATIVE) 02/01/22 13:20 Urine Nitrite Negative (NEGATIVE) 02/01/22 13:20 Urine Bilirubin 1+ (NEGATIVE) 02/01/22 13:20 Urine Urobilinogen Normal (NORMAL) 02/01/22 13:20 Ur Leukocyte Esterase Negative (NEGATIVE) 02/01/22 13:20 Urine RBC 3-5 /HPF (0-3) A 02/01/22 13:20 Urine WBC 0-2 /HPF (0-5) 02/01/22 13:20 Ur Squamous Epith Cells Moderate /HPF (NEGATIVE) 02/01/22 13:20 Amorphous Sediment Trace /HPF (NEGATIVE) 02/01/22 13:20 Urine Bacteria 1+ /HPF (NEGATIVE) 02/01/22 13:20 Hyaline Casts Few /LPF (NEGATIVE) 02/01/22 13:20 Urine Mucus Many /HPF (NEGATIVE) 02/01/22 13:20 Ur Culture Indicated? No/not indicated 02/01/22 13:20 Stl C. diff Tox B Gene Negative (NEGATIVE) 02/01/22 13:20 Stl C. diff [id number] Presumptive negative (NEGATIVE) 02/01/22 13:20 SARS-CoV-2 (PCR) Negative (NEGATIVE) 02/01/22 01:11 Influenza Type A (PCR) Negative (NEGATIVE) 02/01/22 01:11 Influenza Type B (PCR) Negative (NEGATIVE) 02/01/22 01:11 RSV (PCR) Negative (NEGATIVE) 02/01/22 01:11 - Assessment and Plan 1: resolving ileus . PO laparotomy , lysis of adhesions . COPD. dysphagia .. to advance diet . if still having swallowing difficulty will do EGD .
[2022-02-02] MEDS: ZOFRAN INJ 4 MG VIAL IVP PRN (10:36)
--- NOTE | 2022-02-02 15:26 | RAD ---
Above. EarlyHISTORY: ABD PAINStudy: Single flat views of the abdomenComparison:NoneFindings:There are multiple loops of prominent small bowel definite distal bowel gas. Patient reportedly had bowel resection. Surgical yamileth midline..No free air..No abnormal calcifications or abnormal soft tissue shadows. No acute bony abnormalities.IMPRESSION:1.Dilated loops of bowel without bowel gas in the colon. Obstruction not excluded.Electronically signed by: LIZZ JOHNSON (Feb 02, 2022 15:24:44)
[2022-02-02] MEDS ORDERED: NS 100 ML IV 100 ML ONE (18:21)
[2022-02-02] MEDS ORDERED: PHARMACY CONSULT - TPN XX SCH (19:00)
--- NOTE | 2022-02-02 19:09 | CT ---
SOFT TISSUE NECK WITH CONCLINICAL INDICATION: DYSPHAGIAPROCEDURE: Following administration of non-ionic IV contrast, postcontrast CT images were obtained through the neck. Dose reduction techniques including Automated Exposure Control (AEC) and adjustment of mA and kV were utlized.COMPARISON: [None]FINDINGS:The aerodigestive structures are within normal limits. Specifically, the nasal cavity, nasopharynx, oral cavity, oropharynx, hypopharynx, larynx, and visualized trachea and esophagus demonstrate no masses or abnormal enhancement. No pathologically enlarged, necrotic, or otherwise abnormal lymph nodes. The parotid and submandibular glands appear within normal limits. The thyroid gland is normal in size without focal abnormality. Evaluation of the visualized portions of brain parenchyma and orbits demonstrates no abnormality. The visualized paranasal sinuses are predominantly clear. The tympanomastoid cavities are unopacified. Emphysema of the lung apices. Mild degenerative disc disease.IMPRESSION:1. No source of dysphagia identified.Electronically signed by: LIZZ JOHNSON (Feb 02, 2022 19:07:57)
[2022-02-02] MEDS: DEXTROSE 10% IV SCH ×2 (19:46)
[2022-02-02] MEDS: MVI IV SCH ×2 (19:46)
[2022-02-03] MEDS: CLEOCIN 600 MG IV PREMIX 600 MG/50 ML BAG IV SCH ×3 (05:00→21:20)
[2022-02-03] MEDS: DILAUDID INJ IVP PRN ×3 (06:12→21:20)
[2022-02-03 06:29] LABS: BASOPHILS % (AUTO) 0.4 % (0.2-1.0); EOSINOPHILS # (AUTO) 0.2 x10^3/uL (0.0-0.2); EOSINOPHILS % (AUTO) 1.5 % (0.9-2.9); HEMATOCRIT 36.9 % (36.0-47.0); HEMOGLOBIN 12.5 g/dL (12.0-16.0); LYMPHOCYTES # (AUTO) 1.1 X10^3/uL (1.3-2.9); LYMPHOCYTES % (AUTO) 8.6 % (21.0-51.0); MEAN CORPUSCULAR HEMOGLOBIN 29.4 pg (27.0-34.0); MEAN CORPUSCULAR HGB CONC 33.9 g/dL (33.0-35.0); MEAN CORPUSCULAR VOLUME 86.8 fL (80.0-100.0); MEAN PLATELET VOLUME 7.7 fL (7.4-11.0); MONOCYTES # (AUTO) 0.9 x10^3/uL (0.3-0.8); MONOCYTES % (AUTO) 6.9 % (0.0-13.0); NEUTROPHILS # (AUTO) 10.3 x10^3/uL (2.2-4.8); NEUTROPHILS % (AUTO) 82.6 % (42.0-75.0); RED BLOOD COUNT 4.25 X10^6/uL (3.5-5.4); RED CELL DISTRIBUTION WIDTH 13.6 % (11.6-16.5); WHITE BLOOD COUNT 12.5 X10^3/uL (3.6-10.0)
[2022-02-03 06:38] LABS: ALANINE AMINOTRANSFERASE 18 Units/L (12-78); ALBUMIN 2.2 g/dL (3.4-5.0); ALKALINE PHOSPHATASE 56 Units/L (46-116); ASPARTATE AMINO TRANSFERASE 14 Units/L (15-37); BLOOD UREA NITROGEN 8 mg/dL (7-18); CALCIUM 8.2 mg/dL (8.5-10.1); CARBON DIOXIDE 23.4 mmol/L (21-32); CHLORIDE 103 mmol/L (98-107); COR CA(FOR HYPOALB) 9.6 mg/dL (8.5-10.1); COR NA(FOR HYPERGLY) 133 mmol/L (136-145); CREATININE 0.57 mg/dL (0.55-1.02); SODIUM 133 mmol/L (136-145); TOTAL PROTEIN 5.1 g/dL (6.4-8.2); eGFR NON BLACK RACES > 60 (>60)
[2022-02-03] MEDS ORDERED: POTASSIUM CHL 40 MEQ/NS 0.45% 500 ML IV PRN (07:42)
[2022-02-03] MEDS ORDERED: POTASSIUM CHL 60 MEQ/NS 0.45% 500 ML IV PRN (07:42)
[2022-02-03] MEDS ORDERED: POTASSIUM CHLORIDE LIQ 20 MEQ UDC PO PRN (07:42)
[2022-02-03] MEDS ORDERED: K-RIDER 10 MEQ/NS 100 ML 10 MEQ/100 ML BAG IV PRN (07:42)
[2022-02-03] MEDS ORDERED: K-DUR TAB 20 MEQ PO PRN (07:42)
[2022-02-03] MEDS ORDERED: MICRO K EXTEN CAP 10 MEQ PO PRN (07:42)
[2022-02-03] MEDS ORDERED: KLOR-CON PO PRN (07:42)
[2022-02-03] MEDS: PROVENTIL NEB TX 0.083% 2.5MG/ 3ML NEB SCH ×4 (08:46→21:26)
[2022-02-03] MEDS: PULMICORT NEB TX 0.5 MG NEB SCH ×2 (08:46→21:26)
[2022-02-03] MEDS: MVI IV SCH ×6 (09:11→09:49)
[2022-02-03] MEDS: DEXTROSE 10% IV SCH ×2 (09:11)
[2022-02-03] MEDS: VSL#3 PO SCH (09:30)
[2022-02-03] MEDS: LOVENOX INJ 40 MG SYR SC SCH (09:30)
[2022-02-03] MEDS: VIBRAMYCIN 100 MG in D5W 250 ML IV 250 ML IV SCH ×2 (09:30→20:35)
[2022-02-03] MEDS: [UNRECOGNIZED DRUG - OTHER] IV SCH ×4 (09:49)
[2022-02-03] MEDS: TRACE ELEMENTS IV SCH ×4 (09:49)
[2022-02-03] MEDS: CLINIMIX IV SCH ×4 (09:49)
--- NOTE | 2022-02-03 11:09 | DR.PROGNOT ---
Hospital Progress Notes - Progress Note for Day of: Progress Note Date: 02/03/22 - Chief Complaint Chief Complaint: still having difficulty swallowing . no diarrhea today , had two BM no vomiting .. soft tissue CT of neck was read as normal .. - Past Medical Family Social History Past Med/Fam/Surg Hx: No changes since H&P Allergies: Allergies cephalexin [From Keflex] Allergy (Verified 01/23/22 23:43) - Review Of Systems ROS: No change since H&P - Vital Signs Vital Signs: Temperature 98.3 F Pulse Rate [Left] 60 Pulse Rate 80 Respiratory Rate 20 Blood Pressure [Left Arm] 103/50 Blood Pressure [Right Arm] 103/54 Blood Pressure 97/55 O2 Sat by Pulse Oximetry 97 - Physical Exam Oriented: Normal Eyes: Normal Ear: Normal Nose: Normal Throat: Normal Respiratory: OTHER (diminished BS both sides .( has COPD ) ) Cardiovascular: Normal : Normal GI:Auscultation: Decreased GI:Palpation: Other (soft , flat abdomen . clean incision , no infection . BS+ ( hypo active )) GI: Tenderness: Other (soft, flat abdomen .. non tender with clean incision ) Speech Pattern: Clear, Appropriate - Laboratory and Diagnostics Result Diagrams: 02/03/22 06:12 02/03/22 06:12 Labs: 02/01/22 13:20 Urine,Clean Catch Urine Culture - Final Citrobacter Freundii [facility] WBC 12.5 X10^3/uL (3.6-10.0) H 02/03/22 06:12 RBC 4.25 X10^6/uL (3.5-5.4) 02/03/22 06:12 Hgb 12.5 g/dL (12.0-16.0) 02/03/22 06:12 Hct 36.9 % (36.0-47.0) 02/03/22 06:12 MCV 86.8 fL (80.0-100.0) 02/03/22 06:12 MCH 29.4 pg (27.0-34.0) 02/03/22 06:12 MCHC 33.9 g/dL (33.0-35.0) 02/03/22 06:12 RDW 13.6 % (11.6-16.5) 02/03/22 06:12 Plt Count 262 X10^3/uL (150.0-450.0) 02/03/22 06:12 MPV 7.7 fL (7.4-11.0) 02/03/22 06:12 Neut % (Auto) 82.6 % (42.0-75.0) H 02/03/22 06:12 Lymph % (Auto) 8.6 % (21.0-51.0) L 02/03/22 06:12 [place] % (Auto) 6.9 % (0.0-13.0) 02/03/22 06:12 Eos % (Auto) 1.5 % (0.9-2.9) 02/03/22 06:12 Baso % (Auto) 0.4 % (0.2-1.0) 02/03/22 06:12 Neut # (Auto) 10.3 x10^3/uL (2.2-4.8) H 02/03/22 06:12 Lymph # (Auto) 1.1 X10^3/uL (1.3-2.9) L 02/03/22 06:12 [place] # (Auto) 0.9 x10^3/uL (0.3-0.8) H 02/03/22 06:12 Eos # (Auto) 0.2 x10^3/uL (0.0-0.2) 02/03/22 06:12 Baso # (Auto) 0.0 X10^3/uL (0.0-0.1) 02/03/22 06:12 Absolute Nucleated RBC 0.0 /100WBC 02/03/22 06:12 Sodium 133 mmol/L (136-145) L 02/03/22 06:12 Corrected Sodium 133 mmol/L (136-145) L 02/03/22 06:12 Potassium 3.6 mmol/L (3.5-5.1) 02/03/22 06:12 Chloride 103 mmol/L (98-107) 02/03/22 06:12 Carbon Dioxide 23.4 mmol/L (21-32) 02/03/22 06:12 BUN 8 mg/dL (7-18) 02/03/22 06:12 Creatinine 0.57 mg/dL (0.55-1.02) 02/03/22 06:12 Est GFR (MDRD) Af Amer > 60 (>60) 02/03/22 06:12 Est GFR (MDRD) Non-Af > 60 (>60) 02/03/22 06:12 Glucose 119 mg/dL (65-99) H 02/03/22 06:12 Calcium 8.2 mg/dL (8.5-10.1) L 02/03/22 06:12 Corrected Calcium 9.6 mg/dL (8.5-10.1) 02/03/22 06:12 Magnesium 1.3 mg/dL (1.7-2.9) L 02/03/22 05:33 Total Bilirubin 0.20 mg/dL (0.2-1.0) 02/03/22 06:12 AST 14 Units/L (15-37) L 02/03/22 06:12 ALT 18 Units/L (12-78) 02/03/22 06:12 Alkaline Phosphatase 56 Units/L (46-116) 02/03/22 06:12 Total Protein 5.1 g/dL (6.4-8.2) L 02/03/22 06:12 Albumin 2.2 g/dL (3.4-5.0) L 02/03/22 06:12 Globulin 2.9 g/dL (2.5-4.5) 02/03/22 06:12 Albumin/Globulin Ratio 0.8 Ratio (1.1-2.1) L 02/03/22 06:12 Prealbumin 12.1 mg/dL (18-35.7) L 02/03/22 06:12 Amylase 37 Units/L (25-115) 02/01/22 05:45 Lipase 117 Units/L (73-393) 02/01/22 05:45 Specimen Type Clean catch urine 02/01/22 13:20 Urine Color [place] (YELLOW) 02/01/22 13:20 Urine Appearance Slightly hazy (CLEAR) 02/01/22 13:20 Urine pH 5.0 (5.0 - 8.0) 02/01/22 13:20 Ur Specific [place] 1.030 (1.000-1.030) 02/01/22 13:20 Urine Protein 1+ (NEGATIVE) 02/01/22 13:20 Urine Glucose (UA) Negative (NEGATIVE) 02/01/22 13:20 Urine Ketones 3+ (NEGATIVE) 02/01/22 13:20 Urine Blood 1+ (NEGATIVE) 02/01/22 13:20 Urine Nitrite Negative (NEGATIVE) 02/01/22 13:20 Urine Bilirubin 1+ (NEGATIVE) 02/01/22 13:20 Urine Urobilinogen Normal (NORMAL) 02/01/22 13:20 Ur Leukocyte Esterase Negative (NEGATIVE) 02/01/22 13:20 Urine RBC 3-5 /HPF (0-3) A 02/01/22 13:20 Urine WBC 0-2 /HPF (0-5) 02/01/22 13:20 Ur Squamous Epith Cells Moderate /HPF (NEGATIVE) 02/01/22 13:20 Amorphous Sediment Trace /HPF (NEGATIVE) 02/01/22 13:20 Urine Bacteria 1+ /HPF (NEGATIVE) 02/01/22 13:20 Hyaline Casts Few /LPF (NEGATIVE) 02/01/22 13:20 Urine Mucus Many /HPF (NEGATIVE) 02/01/22 13:20 Ur Culture Indicated? No/not indicated 02/01/22 13:20 Stl C. diff Tox B Gene Negative (NEGATIVE) 02/01/22 13:20 Stl C. diff [id number] Presumptive negative (NEGATIVE) 02/01/22 13:20 SARS-CoV-2 (PCR) Negative (NEGATIVE) 02/01/22 01:11 Influenza Type A (PCR) Negative (NEGATIVE) 02/01/22 01:11 Influenza Type B (PCR) Negative (NEGATIVE) 02/01/22 01:11 RSV (PCR) Negative (NEGATIVE) 02/01/22 01:11 - Assessment and Plan 1: resolving ileus . dysphagia with poor oral intake. PO laparotomy , lysis of adhesions . COPD. started on peripheral TPN . needs EGD if still unable to swallow . to advance diet . - Problem Patient Problems: Patient Problems Bowel obstruction (Acute) K56.609 Pneumonia (Acute) J18.9 Abdominal pain, acute (Acute) R10.9 Abnormal swallowing (Acute) R13.10
[2022-02-03] MEDS ORDERED: DRUG FILTER EXTENSION SET ONE (11:39)
--- NOTE | 2022-02-03 11:59 | PCM.PROG ---
Progress Note Progress Note for Day of Date of Exam: 01/26/22 Subjective Subjective: Patient sitting on side of bed this morning feeling slightly better but still having some fair amount of abdominal discomfort. Her labs look good this morning there is nothing medical to address. Vital signs are stable. Past Medical Family Social History Past Med/Fam/Surg Hx: No changes since H&P Allergies: Allergies cephalexin [From Keflex] Allergy (Verified 01/23/22 23:43) Review of Systems ROS: No change since H&P Vital Signs and I&O's Vital Signs: Temperature 98.3 F Pulse Rate [Left] 60 Pulse Rate 60 Respiratory Rate 20 Blood Pressure [Left Arm] 103/50 Blood Pressure [Right Arm] 103/54 Blood Pressure 97/55 O2 Sat by Pulse Oximetry 97 Intake and Output: Intake & Output 01/31/22 02/01/22 02/02/22 02/03/22 11:59 11:59 11:59 11:59 Intake Total 375 / 375 3526 / 3526 3286 / 3286 Balance 375 / 375 3526 / 3526 3286 / 3286 Physical Exam Oriented: Normal Eyes: Normal Ear: Normal Nose: Normal Throat: Normal Respiratory: OTHER (diminished BS both sides .( has COPD ) ) Cardiovascular: Normal : Normal Auscultation: Bowel Sounds: Decreased Tenderness: Other (soft, flat abdomen .. non tender with clean incision ) Speech Pattern: Clear and Appropriate Laboratory and Diagnostics Result Diagrams: 02/03/22 06:12 02/03/22 06:12 Labs: 02/01/22 02:57 Blood Blood Culture - Preliminary 02/01/22 02:50 Blood Blood Culture - Preliminary 02/01/22 13:20 Urine,Clean Catch Urine Culture - Final Citrobacter Freundii [facility] WBC 12.5 X10^3/uL (3.6-10.0) H 02/03/22 06:12 RBC 4.25 X10^6/uL (3.5-5.4) 02/03/22 06:12 Hgb 12.5 g/dL (12.0-16.0) 02/03/22 06:12 Hct 36.9 % (36.0-47.0) 02/03/22 06:12 MCV 86.8 fL (80.0-100.0) 02/03/22 06:12 MCH 29.4 pg (27.0-34.0) 02/03/22 06:12 MCHC 33.9 g/dL (33.0-35.0) 02/03/22 06:12 RDW 13.6 % (11.6-16.5) 02/03/22 06:12 Plt Count 262 X10^3/uL (150.0-450.0) 02/03/22 06:12 MPV 7.7 fL (7.4-11.0) 02/03/22 06:12 Neut % (Auto) 82.6 % (42.0-75.0) H 02/03/22 06:12 Lymph % (Auto) 8.6 % (21.0-51.0) L 02/03/22 06:12 [place] % (Auto) 6.9 % (0.0-13.0) 02/03/22 06:12 Eos % (Auto) 1.5 % (0.9-2.9) 02/03/22 06:12 Baso % (Auto) 0.4 % (0.2-1.0) 02/03/22 06:12 Neut # (Auto) 10.3 x10^3/uL (2.2-4.8) H 02/03/22 06:12 Lymph # (Auto) 1.1 X10^3/uL (1.3-2.9) L 02/03/22 06:12 [place] # (Auto) 0.9 x10^3/uL (0.3-0.8) H 02/03/22 06:12 Eos # (Auto) 0.2 x10^3/uL (0.0-0.2) 02/03/22 06:12 Baso # (Auto) 0.0 X10^3/uL (0.0-0.1) 02/03/22 06:12 Absolute Nucleated RBC 0.0 /100WBC 02/03/22 06:12 Sodium 133 mmol/L (136-145) L 02/03/22 06:12 Corrected Sodium 133 mmol/L (136-145) L 02/03/22 06:12 Potassium 3.6 mmol/L (3.5-5.1) 02/03/22 06:12 Chloride 103 mmol/L (98-107) 02/03/22 06:12 Carbon Dioxide 23.4 mmol/L (21-32) 02/03/22 06:12 BUN 8 mg/dL (7-18) 02/03/22 06:12 Creatinine 0.57 mg/dL (0.55-1.02) 02/03/22 06:12 Est GFR (MDRD) Af Amer > 60 (>60) 02/03/22 06:12 Est GFR (MDRD) Non-Af > 60 (>60) 02/03/22 06:12 Glucose 119 mg/dL (65-99) H 02/03/22 06:12 Calcium 8.2 mg/dL (8.5-10.1) L 02/03/22 06:12 Corrected Calcium 9.6 mg/dL (8.5-10.1) 02/03/22 06:12 Magnesium 1.3 mg/dL (1.7-2.9) L 02/03/22 05:33 Total Bilirubin 0.20 mg/dL (0.2-1.0) 02/03/22 06:12 AST 14 Units/L (15-37) L 02/03/22 06:12 ALT 18 Units/L (12-78) 02/03/22 06:12 Alkaline Phosphatase 56 Units/L (46-116) 02/03/22 06:12 Total Protein 5.1 g/dL (6.4-8.2) L 02/03/22 06:12 Albumin 2.2 g/dL (3.4-5.0) L 02/03/22 06:12 Globulin 2.9 g/dL (2.5-4.5) 02/03/22 06:12 Albumin/Globulin Ratio 0.8 Ratio (1.1-2.1) L 02/03/22 06:12 Prealbumin 12.1 mg/dL (18-35.7) L 02/03/22 06:12 Amylase 37 Units/L (25-115) 02/01/22 05:45 Lipase 117 Units/L (73-393) 02/01/22 05:45 Specimen Type Clean catch urine 02/01/22 13:20 Urine Color [place] (YELLOW) 02/01/22 13:20 Urine Appearance Slightly hazy (CLEAR) 02/01/22 13:20 Urine pH 5.0 (5.0 - 8.0) 02/01/22 13:20 Ur Specific [place] 1.030 (1.000-1.030) 02/01/22 13:20 Urine Protein 1+ (NEGATIVE) 02/01/22 13:20 Urine Glucose (UA) Negative (NEGATIVE) 02/01/22 13:20 Urine Ketones 3+ (NEGATIVE) 02/01/22 13:20 Urine Blood 1+ (NEGATIVE) 02/01/22 13:20 Urine Nitrite Negative (NEGATIVE) 02/01/22 13:20 Urine Bilirubin 1+ (NEGATIVE) 02/01/22 13:20 Urine Urobilinogen Normal (NORMAL) 02/01/22 13:20 Ur Leukocyte Esterase Negative (NEGATIVE) 02/01/22 13:20 Urine RBC 3-5 /HPF (0-3) A 02/01/22 13:20 Urine WBC 0-2 /HPF (0-5) 02/01/22 13:20 Ur Squamous Epith Cells Moderate /HPF (NEGATIVE) 02/01/22 13:20 Amorphous Sediment Trace /HPF (NEGATIVE) 02/01/22 13:20 Urine Bacteria 1+ /HPF (NEGATIVE) 02/01/22 13:20 Hyaline Casts Few /LPF (NEGATIVE) 02/01/22 13:20 Urine Mucus Many /HPF (NEGATIVE) 02/01/22 13:20 Ur Culture Indicated? No/not indicated 02/01/22 13:20 Stl C. diff Tox B Gene Negative (NEGATIVE) 02/01/22 13:20 Stl C. diff [id number]-BI Presumptive negative (NEGATIVE) 02/01/22 13:20 SARS-CoV-2 (PCR) Negative (NEGATIVE) 02/01/22 01:11 Influenza Type A (PCR) Negative (NEGATIVE) 02/01/22 01:11 Influenza Type B (PCR) Negative (NEGATIVE) 02/01/22 01:11 RSV (PCR) Negative (NEGATIVE) 02/01/22 01:11 Plan (1) Volvulus: Status: Acute Plan: Treatment per general surgery. (2) COPD (chronic obstructive pulmonary disease): Status: Acute Plan: Monitor for hypoxia. (3) Hypothyroidism: Status: Acute (4) Hypercholesteremia: Status: Acute Plan: I will hold the patient's cholesterol medicine at this time given her presumed volvulus. (5) Acid reflux disease: Status: Acute Plan: IV pantoprazole.
--- NOTE | 2022-02-03 12:03 | PCM.PROG ---
Progress Note Progress Note for Day of Date of Exam: 01/27/22 Subjective Subjective: Patient sitting on side of bed this morning feeling slightly better and having less abdominal discomfort today. Her labs look good this morning there is nothing medical to address. Vital signs are stable. Continue current treatment. Past Medical Family Social History Past Med/Fam/Surg Hx: No changes since H&P Allergies: Allergies cephalexin [From Keflex] Allergy (Verified 01/23/22 23:43) Review of Systems ROS: No change since H&P Vital Signs and I&O's Vital Signs: Temperature 98.3 F Pulse Rate [Left] 60 Pulse Rate 60 Respiratory Rate 20 Blood Pressure [Left Arm] 103/50 Blood Pressure [Right Arm] 103/54 Blood Pressure 97/55 O2 Sat by Pulse Oximetry 97 Intake and Output: Intake & Output 02/01/22 02/02/22 02/03/22 02/04/22 11:59 11:59 11:59 11:59 Intake Total 375 / 375 3526 / 3526 3286 / 3286 Balance 375 / 375 3526 / 3526 3286 / 3286 Physical Exam Oriented: Normal Eyes: Normal Ear: Normal Nose: Normal Throat: Normal Respiratory: OTHER (diminished BS both sides .( has COPD ) ) Cardiovascular: Normal : Normal Auscultation: Bowel Sounds: Decreased Tenderness: Other (soft, flat abdomen .. non tender with clean incision ) Skin: Normal Mood Description: Calm Affect: Normal Speech Pattern: Clear and Appropriate Laboratory and Diagnostics Result Diagrams: 02/03/22 06:12 02/03/22 06:12 Labs: 02/01/22 02:57 Blood Blood Culture - Preliminary 02/01/22 02:50 Blood Blood Culture - Preliminary 02/01/22 13:20 Urine,Clean Catch Urine Culture - Final Citrobacter Freundii [facility] WBC 12.5 X10^3/uL (3.6-10.0) H 02/03/22 06:12 RBC 4.25 X10^6/uL (3.5-5.4) 02/03/22 06:12 Hgb 12.5 g/dL (12.0-16.0) 02/03/22 06:12 Hct 36.9 % (36.0-47.0) 02/03/22 06:12 MCV 86.8 fL (80.0-100.0) 02/03/22 06:12 MCH 29.4 pg (27.0-34.0) 02/03/22 06:12 MCHC 33.9 g/dL (33.0-35.0) 02/03/22 06:12 RDW 13.6 % (11.6-16.5) 02/03/22 06:12 Plt Count 262 X10^3/uL (150.0-450.0) 02/03/22 06:12 MPV 7.7 fL (7.4-11.0) 02/03/22 06:12 Neut % (Auto) 82.6 % (42.0-75.0) H 02/03/22 06:12 Lymph % (Auto) 8.6 % (21.0-51.0) L 02/03/22 06:12 [place] % (Auto) 6.9 % (0.0-13.0) 02/03/22 06:12 Eos % (Auto) 1.5 % (0.9-2.9) 02/03/22 06:12 Baso % (Auto) 0.4 % (0.2-1.0) 02/03/22 06:12 Neut # (Auto) 10.3 x10^3/uL (2.2-4.8) H 02/03/22 06:12 Lymph # (Auto) 1.1 X10^3/uL (1.3-2.9) L 02/03/22 06:12 [place] # (Auto) 0.9 x10^3/uL (0.3-0.8) H 02/03/22 06:12 Eos # (Auto) 0.2 x10^3/uL (0.0-0.2) 02/03/22 06:12 Baso # (Auto) 0.0 X10^3/uL (0.0-0.1) 02/03/22 06:12 Absolute Nucleated RBC 0.0 /100WBC 02/03/22 06:12 Sodium 133 mmol/L (136-145) L 02/03/22 06:12 Corrected Sodium 133 mmol/L (136-145) L 02/03/22 06:12 Potassium 3.6 mmol/L (3.5-5.1) 02/03/22 06:12 Chloride 103 mmol/L (98-107) 02/03/22 06:12 Carbon Dioxide 23.4 mmol/L (21-32) 02/03/22 06:12 BUN 8 mg/dL (7-18) 02/03/22 06:12 Creatinine 0.57 mg/dL (0.55-1.02) 02/03/22 06:12 Est GFR (MDRD) Af Amer > 60 (>60) 02/03/22 06:12 Est GFR (MDRD) Non-Af > 60 (>60) 02/03/22 06:12 Glucose 119 mg/dL (65-99) H 02/03/22 06:12 Calcium 8.2 mg/dL (8.5-10.1) L 02/03/22 06:12 Corrected Calcium 9.6 mg/dL (8.5-10.1) 02/03/22 06:12 Magnesium 1.3 mg/dL (1.7-2.9) L 02/03/22 05:33 Total Bilirubin 0.20 mg/dL (0.2-1.0) 02/03/22 06:12 AST 14 Units/L (15-37) L 02/03/22 06:12 ALT 18 Units/L (12-78) 02/03/22 06:12 Alkaline Phosphatase 56 Units/L (46-116) 02/03/22 06:12 Total Protein 5.1 g/dL (6.4-8.2) L 02/03/22 06:12 Albumin 2.2 g/dL (3.4-5.0) L 02/03/22 06:12 Globulin 2.9 g/dL (2.5-4.5) 02/03/22 06:12 Albumin/Globulin Ratio 0.8 Ratio (1.1-2.1) L 02/03/22 06:12 Prealbumin 12.1 mg/dL (18-35.7) L 02/03/22 06:12 Amylase 37 Units/L (25-115) 02/01/22 05:45 Lipase 117 Units/L (73-393) 02/01/22 05:45 Specimen Type Clean catch urine 02/01/22 13:20 Urine Color Mel[place] (YELLOW) 02/01/22 13:20 Urine Appearance Slightly hazy (CLEAR) 02/01/22 13:20 Urine pH 5.0 (5.0 - 8.0) 02/01/22 13:20 Ur Specific [place] 1.030 (1.000-1.030) 02/01/22 13:20 Urine Protein 1+ (NEGATIVE) 02/01/22 13:20 Urine Glucose (UA) Negative (NEGATIVE) 02/01/22 13:20 Urine Ketones 3+ (NEGATIVE) 02/01/22 13:20 Urine Blood 1+ (NEGATIVE) 02/01/22 13:20 Urine Nitrite Negative (NEGATIVE) 02/01/22 13:20 Urine Bilirubin 1+ (NEGATIVE) 02/01/22 13:20 Urine Urobilinogen Normal (NORMAL) 02/01/22 13:20 Ur Leukocyte Esterase Negative (NEGATIVE) 02/01/22 13:20 Urine RBC 3-5 /HPF (0-3) A 02/01/22 13:20 Urine WBC 0-2 /HPF (0-5) 02/01/22 13:20 Ur Squamous Epith Cells Moderate /HPF (NEGATIVE) 02/01/22 13:20 Amorphous Sediment Trace /HPF (NEGATIVE) 02/01/22 13:20 Urine Bacteria 1+ /HPF (NEGATIVE) 02/01/22 13:20 Hyaline Casts Few /LPF (NEGATIVE) 02/01/22 13:20 Urine Mucus Many /HPF (NEGATIVE) 02/01/22 13:20 Ur Culture Indicated? No/not indicated 02/01/22 13:20 Stl C. diff Tox B Gene Negative (NEGATIVE) 02/01/22 13:20 Stl C. diff [id number] Presumptive negative (NEGATIVE) 02/01/22 13:20 SARS-CoV-2 (PCR) Negative (NEGATIVE) 02/01/22 01:11 Influenza Type A (PCR) Negative (NEGATIVE) 02/01/22 01:11 Influenza Type B (PCR) Negative (NEGATIVE) 02/01/22 01:11 RSV (PCR) Negative (NEGATIVE) 02/01/22 01:11 Plan (1) Volvulus: Status: Acute Plan: Treatment per general surgery. (2) COPD (chronic obstructive pulmonary disease): Status: Acute Plan: Monitor for hypoxia. (3) Hypothyroidism: Status: Acute (4) Hypercholesteremia: Status: Acute Plan: I will hold the patient's cholesterol medicine at this time given her presumed volvulus. (5) Acid reflux disease: Status: Acute Plan: IV pantoprazole.
[2022-02-03] MEDS: CIPRO IV 400 MG PREMIX* 400 MG/200 ML IV.SOLN. IV SCH ×2 (16:21→22:32)
[2022-02-03] MEDS: REGLAN INJ 10 MG VIAL IVP SCH (18:16)
[2022-02-04] MEDS: REGLAN INJ 10 MG VIAL IVP SCH ×3 (02:31→18:16)
[2022-02-04] MEDS ORDERED: DRUG FILTER EXTENSION SET ONE (02:33)
[2022-02-04] MEDS: DILAUDID INJ IVP PRN (03:22)
[2022-02-04] MEDS: CLINIMIX IV SCH ×8 (03:59→22:19)
[2022-02-04] MEDS: MVI IV SCH ×8 (03:59→22:19)
[2022-02-04] MEDS: TRACE ELEMENTS IV SCH ×8 (03:59→22:19)
[2022-02-04] MEDS: [UNRECOGNIZED DRUG - OTHER] IV SCH ×8 (03:59→22:19)
[2022-02-04] MEDS: CLEOCIN 600 MG IV PREMIX 600 MG/50 ML BAG IV SCH ×3 (05:00→21:00)
[2022-02-04 05:37] LABS: PREALBUMIN 13.7 mg/dL (18-35.7)
[2022-02-04 05:43] LABS: BASOPHILS % (AUTO) 0.2 % (0.2-1.0); EOSINOPHILS # (AUTO) 0.2 x10^3/uL (0.0-0.2); EOSINOPHILS % (AUTO) 1.4 % (0.9-2.9); HEMATOCRIT 38.5 % (36.0-47.0); HEMOGLOBIN 13.3 g/dL (12.0-16.0); LYMPHOCYTES % (AUTO) 9.2 % (21.0-51.0); MEAN CORPUSCULAR HEMOGLOBIN 29.8 pg (27.0-34.0); MEAN CORPUSCULAR HGB CONC 34.6 g/dL (33.0-35.0); MEAN CORPUSCULAR VOLUME 86.1 fL (80.0-100.0); MEAN PLATELET VOLUME 8.3 fL (7.4-11.0); MONOCYTES # (AUTO) 0.6 x10^3/uL (0.3-0.8); MONOCYTES % (AUTO) 5.9 % (0.0-13.0); NEUTROPHILS % (AUTO) 83.3 % (42.0-75.0); RED BLOOD COUNT 4.47 X10^6/uL (3.5-5.4); RED CELL DISTRIBUTION WIDTH 13.8 % (11.6-16.5); WHITE BLOOD COUNT 10.8 X10^3/uL (3.6-10.0)
[2022-02-04 05:52] LABS: ALANINE AMINOTRANSFERASE 16 Units/L (12-78); ALBUMIN 2.5 g/dL (3.4-5.0); ALKALINE PHOSPHATASE 68 Units/L (46-116); ASPARTATE AMINO TRANSFERASE 10 Units/L (15-37); BLOOD UREA NITROGEN 6 mg/dL (7-18); CALCIUM 8.6 mg/dL (8.5-10.1); CARBON DIOXIDE 26.5 mmol/L (21-32); CHLORIDE 100 mmol/L (98-107); COR CA(FOR HYPOALB) 9.8 mg/dL (8.5-10.1); CREATININE 0.59 mg/dL (0.55-1.02); SODIUM 136 mmol/L (136-145); TOTAL PROTEIN 5.8 g/dL (6.4-8.2); eGFR NON BLACK RACES > 60 (>60)
[2022-02-04] MEDS: PROVENTIL NEB TX 0.083% 2.5MG/ 3ML NEB SCH ×4 (08:00→20:37)
[2022-02-04] MEDS: PULMICORT NEB TX 0.5 MG NEB SCH ×2 (08:00→20:37)
[2022-02-04] MEDS: CIPRO IV 400 MG PREMIX* 400 MG/200 ML IV.SOLN. IV SCH ×2 (09:45→20:20)
[2022-02-04] MEDS: LOVENOX INJ 40 MG SYR SC SCH (10:17)
[2022-02-04] MEDS: VSL#3 PO SCH (10:17)
[2022-02-04] MEDS ORDERED: VIBRAMYCIN IV ONE (10:28)
[2022-02-04] MEDS: VIBRAMYCIN 100 MG in D5W 250 ML IV 250 ML IV SCH ×2 (10:45→22:18)
--- NOTE | 2022-02-04 14:25 | RAD ---
HISTORYASTHMA, COPD, GERD SX: APPY, BOWEL RESECTION, HYSTERECTOMY .br DIFFICULTY SWALLOWING SINCE BEING INTUBATED FOR SURGERY, PT HAS HAD ESOPHAGUS STRETCHED IN THE PASTSTUDYCHEST, PA/LAT ADULTCOMPARISONJuly 2021FINDINGSThe trachea is midline. The cardiac silhouette is unremarkable. The lungs demonstrates bibasilar atelectasis blunting of costophrenic angle suggesting tiny effusions.. The bony thorax is unremarkable. The patient given barium which appearing mass in the stomach without delay there is low-level alcira may be ascertained on this film follow-up barium swallow may be needed. This could be follow-up nonemergent outpatient basis is there is obviously no obstructionIMPRESSIONBibasilar atelectasis with tiny effusions suspected.Electronically signed by: NAT LAWRENCE (Feb 04, 2022 14:24:05)
[2022-02-04] MEDS ORDERED: RESTORIL CAP 15 MG PO PRN (20:26)
[2022-02-05] MEDS: REGLAN INJ 10 MG VIAL IVP SCH (02:02)
[2022-02-05] MEDS: CLEOCIN 600 MG IV PREMIX 600 MG/50 ML BAG IV SCH (05:06)
[2022-02-05] MEDS ORDERED: MAGNESIUM SULFATE 1 GRAM/100 mL PREMIX 1 G/100 ML BAG IV PRN (07:17)
[2022-02-05] MEDS ORDERED: D5W 250 ML IV 0 ML IV ONE (08:32)
[2022-02-05] MEDS: PROVENTIL NEB TX 0.083% 2.5MG/ 3ML NEB SCH (09:27)
[2022-02-05] MEDS: PULMICORT NEB TX 0.5 MG NEB SCH (09:27)
[2022-02-05] MEDS: CIPRO IV 400 MG PREMIX* 400 MG/200 ML IV.SOLN. IV SCH (09:45)
[2022-02-05] MEDS: LOVENOX INJ 40 MG SYR SC SCH (09:45)
[2022-02-05] MEDS: VSL#3 PO SCH (09:47)
[2022-02-05] MEDS: VIBRAMYCIN 100 MG in D5W 250 ML IV 250 ML IV SCH (09:47)
[2022-02-05 10:11] VITALS: BP 107/56
== END 2022-02-05 10:05 | disposition home or self-care (01) | DRG 388 ==
LOC: ER 22:09 → MED/SURG 22:09 → OBSVTOIN 02-01 03:13 → MED/SURG 02-01 04:16
PROVIDERS: ADMIT Surgery; ATTEND Surgery
DX: R26.89 Other abnormalities of gait and mobility; E78.00 Pure hypercholesterolemia, unspecified; R10.84 Generalized abdominal pain; F41.8 Other specified anxiety disorders; J18.8 Other pneumonia, unspecified organism; R11.2 Nausea with vomiting, unspecified; R13.11 Dysphagia, oral phase; K56.7 Ileus, unspecified; Z72.0 Tobacco use; K22.4 Dyskinesia of esophagus; Z20.822 Contact with and (suspected) exposure to COVID-19; E86.0 Dehydration; J44.9 Chronic obstructive pulmonary disease, unspecified; R19.7 Diarrhea, unspecified; Z98.890 Other specified postprocedural states; E03.8 Other specified hypothyroidism; K21.9 Gastro-esophageal reflux disease without esophagitis; B96.89 Other specified bacterial agents as the cause of diseases classified elsewhere